=== PATIENT | male | born 1970 | race Caucasian/White ===

== ENCOUNTER 2020-12-18 14:22 | Inpatient (IN) | payer MEDICAID, SELFPAY ==
[2020-12-18] VITALS (21 sets, daily range): BP systolic 112–144; BP diastolic 57–81; PULSE 81–105; RESP 4–34; TEMP 36.2–36.7; O2SAT 81–99
--- NOTE | 2020-12-18 15:15 | DI.CT_ITS ---
Exam(s) CT CHEST PE CTA EXAM: CT CHEST PE CTA CLINICAL HISTORY: sob,tachy. TECHNIQUE: Imaging Protocol: CT angiography of the chest was performed using pulmonary embolus farooq col. Multi planar reconstructions were performed. CONTRAST MATERIAL: Intravenous: Omnipaque 350 Contrast volume: 100 cc COMPARISON: No exams were available for comparison FINDINGS: CHEST: PULMONARY ARTERIES: There are no obvious intraluminal filling defects to suggest acute pulmonary embo li. LUNGS: There are extensive bilateral patchy ground-glass infiltrates, not associated with pleural eff usions. Suspicious for Covid-19 infiltrates. No focal findings in the trachea and mainstem bronchi MEDIASTINUM: Slightly enlarged hilar lymph nodes bilaterally. Visualized thyroid unremarkable. CARDIAC: Heart size is upper normal. There is no pericardial effusion.Caliber of the thoracic aorta is within normal limits. There is no significant shift of the interventricular septum. PARTIALLY VISUALIZED UPPERMOST ABDOMEN: Severe hepatic steatosis. Mild splenomegaly. However, pleas e note that the spleen and liver only partially included in the field of view of this chest study. N o obvious adrenal masses although the entirety renal glands are not included in the field of view. OSSEOUS: No significant osseous lesions.. IMPRESSION: 1. No evidence of acute pulmonary emboli. No evidence of pulmonary infarction.No pleural effusions. 2. Main finding here are extensive bilateral ground-glass infiltrates highly suspicious for Covid-19 pneumonia. 3. Other findings as above. RADIATION DOSE DELIVERED: 775.62mGy.cm Total DLP DATA REPOSITORY: All CT scans at this facility are submitted to the National Radiology Data Registry (NRDR) Dose Index Registry (DIR) with the [employer] ([employer]). RADIATION OPTIMIZATION: All CT scans at this facility use at least one of these dose optimization te chniques: automated exposure control; mA and/or kV adjustment per patient size (includes targeted exa ms where dose is matched to clinical indication); or iterative reconstruction.
--- NOTE | 2020-12-18 15:15 | RT.EKG_ITS ---
APPROVED REPORT Exam: Resting ECG Reason for Exam: sob Patient Location: E HR:85 bpm ECG Measurements Heart Rate 85 AXIS NE 144 P 40 QRSd 97 QRS -32 QT 353 T 35 QTc 422 Conclusion Sinus rhythm...normal P axis, V-rate 60- 99 Left axis deviation...QRS axis (-30,-90). Sinus. No STEMI. I have reviewed and interpreted ECG and agree with software generated interpretation.
[2020-12-18] MEDS: Albuterol/Ipratropium 3 ML UPD VIAL (15:30)
[2020-12-18] MEDS: Albuterol 2.5 MG/3 ML INH SOLN VIAL (15:56)
[2020-12-18 16:06] LABS: Abs Immature Grans 0.07 10^3/uL (0.0-0.06); Absolute Basophil Count 0.01 10^3/uL (0.0-0.2); Absolute Lymphocyte Count 0.85 10^3/uL (1.2-3.4); Absolute Monocyte Count 0.27 10^3/uL (0.1-0.8); Absolute Neutrophil Count 2.93 10^3/uL (1.2-6.7); Basophils % 0.2; HCT 42.2 % (40.0-50.0); HGB 13.7 g/dL (13.5-17.5); Immature Grans % 1.7; Lymphocytes % 20.6; MCH 26.7 pg (27.0-33.0); MCHC 32.5 % (32.0-36.0); MCV 82.3 fL (80-95); MPV 10.7 fL (8.0-11.0); Monocytes % 6.5; Nucleated RBC 0 %; Platelet Count 172 10^3/uL (130-400); RBC 5.13 10^6/uL (4.36-5.78); RDW 14.2 % (11.8-14.1); RDW-SD 42.2 fL; WBC 4.13 10^3/uL (4.4-10.8)
[2020-12-18 16:08] LABS: Lactate 1.7 mmol/L (0.6-1.4)
[2020-12-18] MEDS: methylPREDNISolone SUCC 125 MG VIAL IVP (16:08)
[2020-12-18] MEDS: Normal Saline 1,000 ML 1000 ML IV (16:09)
--- NOTE | 2020-12-18 16:20 | W.ED.GENAD ---
Discharge Plan Disposition Patient Disposition: STILL A PATIENT Condition: Critical Discharge Details Clinical Impression: COVID-19, Respiratory failure Admit Date/Time: 12/18/20 18:21 Admit Provider: Usman Major Attending Provider: Usman Major Primary Care Provider: Kay Lemos ED Provider: Maile Myers Discharge Data Discharge Date/Time-TO BE ENTERED AT DEPARTURE: 12/18/20 19:52 Medical Decision Making <WILLIAM Bravo - Last Filed: 12/19/20 07:59> 50-year-old gentleman, on the vaccinated for Covid, former smoker, past medical history of asthma, with recent Covid exposure, presenting to the ER with 7-day history of upper respiratory-like symptoms. He presents tachypneic, O2 sat 81% on room air. He was immediately placed on 2 supplemental oxygen, O2 sats now in the low 90s on 3 L nasal cannula although he still appears somewhat tachypneic. Respiratory therapy was contacted. Given his asthma, wheezing, will give a single DuoNeb and then 2 albuterol nebs [id number]. We will also give 125 IV Solu-Medrol will initiate a septic work-up as well as a one-view portable chest x-ray and a CTA for further evaluation of his hypoxemia potential PE. Patient refuses to prone given his body habitus but will lie on his left and right side. Subsequently the patient was lying on his right side at 6 L nasal cannula O2 sat 94%. It was brought to my attention from respiratory that we only have 1 CPAP available and we have no high flow options currently. Patient did begin to move slightly more air after the neb treatments. He is slightly less tachypneic. Clinically he does not require emergent CPAP at this time White blood cell count of 4.13 hemoglobin 13.7 had a crit 42.2 platelet count 172. D-dimer 1004, lactate 1.7 electrolytes unremarkable creatinine 1.1 with a GFR greater than 60. Ferritin 454 AST 144 ALT 93 alk phosphatase 123. Initial troponin less than 0.05. Covid positive Lab Data Lab results reviewed: Yes I reviewed the patient's lab results. Labs: 12/18/20 16:00 Blood Blood Culture - Pending 12/18/20 16:30 Blood Blood Culture - Pending 12/18/20 15:45 Nasopharynx Influenza Types A,B Antigen - Final Laboratory Tests Range/Units 12/18/20 12/18/20 12/18/20 15:10 15:10 15:45 WBC Cancelled RBC Cancelled Hgb Cancelled Hct Cancelled MCV Cancelled MCH Cancelled MCHC Cancelled RDW Cancelled Plt Count Cancelled MPV Cancelled Immature Gran % Cancelled Neutrophils % Cancelled Band Neutrophils % Cancelled Lymphocytes % Cancelled Atypical Lymphs % Cancelled Monocytes % Cancelled Eosinophils % Cancelled Basophils % Cancelled Metamyelocytes % Cancelled Myelocytes % Cancelled Promyelocytes % Cancelled Other Cells % Cancelled Nucleated RBC % Cancelled Absolute Neutrophils Cancelled Absolute Lymphocytes Cancelled Absolute Monocytes Cancelled Absolute Eosinophils Cancelled Absolute Basophils Cancelled RBC Morphology Cancelled Polychromasia Cancelled Hypochromasia Cancelled Poikilocytosis Cancelled Basophilic Stippling Cancelled Anisocytosis Cancelled Microcytosis Cancelled Macrocytosis Cancelled Spherocytes Cancelled Tear Drop Cells Cancelled Ovalocytes Cancelled Stomatocytes Cancelled [place] Bodies Cancelled [place] Cells/Echinocytes Cancelled Acanthocytes (Spur) Cancelled Schistocytes Cancelled D-Dimer (<500) ng/mlFEU VBG Lactate (0.6-1.4) mmol/L Sodium Cancelled Potassium Cancelled Chloride Cancelled Carbon Dioxide Cancelled Anion Gap Cancelled BUN Cancelled Creatinine Cancelled Estimated GFR/1.73 m2 Cancelled Glucose Cancelled Calcium Cancelled Magnesium Cancelled Ferritin (26-388) ng/mL Total Bilirubin Cancelled AST Cancelled ALT Cancelled Alkaline Phosphatase Cancelled Troponin I Cancelled Total Protein Cancelled Albumin Cancelled Procalcitonin ng/mL COVID-19 Source NASOPHARYX SARS-CoV-2 (PCR) (Negative) POSITIVE A* Range/Units 12/18/20 12/18/20 12/18/20 15:50 15:50 15:50 WBC 4.13 L RBC 5.13 Hgb 13.7 Hct 42.2 MCV 82.3 MCH 26.7 L MCHC 32.5 RDW 14.2 H Plt Count 172 MPV 10.7 Immature Gran % 1.7 Neutrophils % 71.0 Band Neutrophils % Lymphocytes % 20.6 Atypical Lymphs % Monocytes % 6.5 Eosinophils % 0.0 Basophils % 0.2 Metamyelocytes % Myelocytes % Promyelocytes % Other Cells % Nucleated RBC % 0 Absolute Neutrophils 2.93 Absolute Lymphocytes 0.85 L Absolute Monocytes 0.27 Absolute Eosinophils 0.00 Absolute Basophils 0.01 RBC Morphology Polychromasia Hypochromasia Poikilocytosis Basophilic Stippling Anisocytosis Microcytosis Macrocytosis Spherocytes Tear Drop Cells Ovalocytes Stomatocytes [place] Bodies [place] Cells/Echinocytes Acanthocytes (Spur) Schistocytes D-Dimer (<500) ng/mlFEU VBG Lactate (0.6-1.4) mmol/L 1.7 H Sodium 137 Potassium 4.1 Chloride 99 Carbon Dioxide 30.5 Anion Gap 7.5 BUN 12 Creatinine 1.1 Estimated GFR/1.73 m2 >= 60.00 Glucose 96 Calcium 8.5 Magnesium Ferritin (26-388) ng/mL 454 H Total Bilirubin 0.7 AST 144 H ALT 93 H Alkaline Phosphatase 123 H Troponin I < 0.05 Total Protein 7.6 Albumin 3.0 L Procalcitonin ng/mL 0.2 COVID-19 Source SARS-CoV-2 (PCR) (Negative) Range/Units 12/18/20 15:50 WBC RBC Hgb Hct MCV MCH MCHC RDW Plt Count MPV Immature Gran % Neutrophils % Band Neutrophils % Lymphocytes % Atypical Lymphs % Monocytes % Eosinophils % Basophils % Metamyelocytes % Myelocytes % Promyelocytes % Other Cells % Nucleated RBC % Absolute Neutrophils Absolute Lymphocytes Absolute Monocytes Absolute Eosinophils Absolute Basophils RBC Morphology Polychromasia Hypochromasia Poikilocytosis Basophilic Stippling Anisocytosis Microcytosis Macrocytosis Spherocytes Tear Drop Cells Ovalocytes Stomatocytes [place] Bodies [place] Cells/Echinocytes Acanthocytes (Spur) Schistocytes D-Dimer (<500) ng/mlFEU 1004 H VBG Lactate (0.6-1.4) mmol/L Sodium Potassium Chloride Carbon Dioxide Anion Gap BUN Creatinine Estimated GFR/1.73 m2 Glucose Calcium Magnesium Ferritin (26-388) ng/mL Total Bilirubin AST ALT Alkaline Phosphatase Troponin I Total Protein Albumin Procalcitonin ng/mL COVID-19 Source SARS-CoV-2 (PCR) (Negative) ECG Data Attestation: I personally reviewed and interpreted this ECG (s) as follows: Interpretation: Please see official report by Dr. Casarez. Sinus rhythm, ventricular rate of 85. No Stemi <WILLIAM Elam - Last Filed: 12/18/20 22:06> Patient was trending down on his oxygen, 89 to 90% despite proning and 6 L of oxygen, and BiPAP was initiated, patient will be admitted to the ICU Agreeable to admission at this time Remains alert, oriented, of decisional capacity, full CODE STATUS CTA does not show evidence of pulmonary embolism, bibasilar infiltrates likely consistent with COVID-19 HPI <WILLIAM Bravo - Last Filed: 12/19/20 07:59> General Mode of arrival: ambulatory. Date/Time Provider Initiated Documentation: 12/18/20 14:40. Limitations to Documentation: no limitations. Information obtained by: patient. HPI Narrative: This is a 50-year-old male, former smoker, a past history of asthma, not vaccinated for Covid with a known exposure in the last 1-2-week presenting to the ER for what he described as 7-8 days of body aches, cough, shortness of breath, dull headache, worsening in that timeframe. Patient reports decreased p.o. intake, concern for dehydration, chest pain with coughing. He denies any back pain, pain rating down his arm or into his neck. Patient does report generalized weakness. He has not taken any medications [id number] for his symptoms. Patient reports that his cough is primarily dry but is occasionally productive with a clear sputum. Patient denies any past history of cardiac disease. He does use Symbicort daily for his asthma and uses his rescue inhaler as needed, has used it regularly over the past few days. Related Data Allergies Allergy/AdvReac Type Severity Reaction Status Date / Time No Known Allergies Allergy Unverified 12/18/20 14:37 General Stated Complaint: SOB IVANA: 2 Review of Systems <WILLIAM Bravo - Last Filed: 12/19/20 07:59> Constitutional Constitutional: Reports fatigue, Reports fever(s) (Subjective) and Reports headache(s) ENT Ears, Nose, Mouth, and Throat: Reports headache(s) and Denies neck pain Cardiovascular Cardiovascular: Reports chest pain (With coughing) and Reports dyspnea Respiratory Respiratory: Reports cough, Reports dyspnea and Reports wheezing Gastrointestinal Gastrointestinal: Denies abdominal pain, Denies constipation, Reports diarrhea, Reports nausea and Denies vomiting Genitourinary Genitourinary: Denies dysuria Musculoskeletal Musculoskeletal: Denies back pain and Denies neck pain Integumentary/Breasts Skin/Breast: Denies rash Neurologic Neurologic: Reports headache(s) and Reports weakness (Generalized) Endocrine Endocrine: Reports fatigue Allergic/Immunologic Allergic/Immunologic: Reports wheezing PFSH <WILLIAM Bravo - Last Filed: 12/19/20 07:59> Social History Smoking/Tobacco Use Status: Never Smoking risk assessment performed?: Yes Alcohol Intake: never Substance use type: does not use Do you feel safe at home: Yes Do you feel safe in your relationship?: Yes Exam <WILLIAM Bravo Last Filed: 12/19/20 07:59> Const General: cooperative and in distress mild and respiratory Orientation: alert, awake and oriented x3 HENMT Head: normal to inspection, normocephalic and atraumatic Face and sinus: normal facial exam Mouth: moist mucous membranes abnormal (Dry) Throat: posterior oropharynx normal Eyes General: appearance normal, both eyes and all related structures Conjunctivae: conjunctivae normal Neck Neck: normal visual inspection, full ROM, no lymphadenopathy, no meningeal signs, trachea midline, supple and nontender Chest Chest: normal inspection of the chest and normal palpation of entire chest wall Resp Effort & Inspection: able to speak in complete sentences, cough Quality of cough: dry and tachypneic Auscultation: diminished lung sounds bilaterally throughout and wheezes (Throughout, expiratory) Cardio Rate: regular rate Rhythm: regular rhythm GI Inspection: obesity and scar Palpation: soft, not firm, no guarding, no pulsatile masses and nontender Back/Spine/Pelvis Back: no CVA tenderness and No back tenderness Skin General skin exam: no rashes or lesions noted Neuro General: patient alert, patient awake, moves all extremities and no focal motor deficits Cognition: normal cognition Speech: speech normal Gait: normal gait Sensory Exam: no sensory deficits noted Extrem General: normal to inspection, full ROM, capillary refill normal, no pedal edema and no calf tenderness Psych Appearance: grossly normal Mental Status: mental status grossly normal Course <WILLIAM Bravo - Last Filed: 12/19/20 07:59> Vital Signs Vital signs: Vital Signs Temperature 36.7 C 12/18/20 14:32 Pulse 90 12/18/20 14:32 Respiratory Rate 16 12/18/20 14:32 Blood Pressure 144/81 H 12/18/20 14:32 Pulse Oximetry 81 L 12/18/20 14:32 Temperature 36.7 C 12/18/20 14:32 Temperature Source Tympanic 12/18/20 14:32 Pulse 92 H 12/18/20 15:30 Pulse 95 H 12/18/20 16:10 Respiratory Rate 24 12/18/20 16:10 Respiratory Effort Labored 12/18/20 15:54 Respiratory Depth Normal 12/18/20 15:54 Respiratory Pattern Normal 12/18/20 15:54 Blood Pressure 144/81 H 12/18/20 14:32 Blood Pressure Position Supine 12/18/20 14:32 Pulse Oximetry 91 L 12/18/20 16:10 Oxygen Delivery Method Nasal Cannula 12/18/20 15:30 Oxygen Flow Rate 3 12/18/20 15:30 Pain Level 8 12/18/20 14:32 Lab/Test Results Lab/Test Results: 12/18/20 15:45 Nasopharynx Influenza Types A,B Antigen - Pending 12/18/20 15:28 Blood Blood Culture - Pending 12/18/20 15:28 Blood Blood Culture - Pending Laboratory Tests Range/Units 12/18/20 12/18/20 12/18/20 15:10 15:10 15:45 WBC Cancelled RBC Cancelled Hgb Cancelled Hct Cancelled MCV Cancelled MCH Cancelled MCHC Cancelled RDW Cancelled Plt Count Cancelled MPV Cancelled Immature Gran % Cancelled Neutrophils % Cancelled Band Neutrophils % Cancelled Lymphocytes % Cancelled Atypical Lymphs % Cancelled Monocytes % Cancelled Eosinophils % Cancelled Basophils % Cancelled Metamyelocytes % Cancelled Myelocytes % Cancelled Promyelocytes % Cancelled Other Cells % Cancelled Nucleated RBC % Cancelled Absolute Neutrophils Cancelled Absolute Lymphocytes Cancelled Absolute Monocytes Cancelled Absolute Eosinophils Cancelled Absolute Basophils Cancelled RBC Morphology Cancelled Polychromasia Cancelled Hypochromasia Cancelled Poikilocytosis Cancelled Basophilic Stippling Cancelled Anisocytosis Cancelled Microcytosis Cancelled Macrocytosis Cancelled Spherocytes Cancelled Tear Drop Cells Cancelled Ovalocytes Cancelled Stomatocytes Cancelled [place] Bodies Cancelled [place] Cells/Echinocytes Cancelled Acanthocytes (Spur) Cancelled Schistocytes Cancelled VBG Lactate (0.6-1.4) mmol/L Sodium Cancelled Potassium Cancelled Chloride Cancelled Carbon Dioxide Cancelled Anion Gap Cancelled BUN Cancelled Creatinine Cancelled Estimated GFR/1.73 m2 Cancelled Glucose Cancelled Calcium Cancelled Magnesium Cancelled Total Bilirubin Cancelled AST Cancelled ALT Cancelled Alkaline Phosphatase Cancelled Troponin I Cancelled Total Protein Cancelled Albumin Cancelled COVID-19 Source NASOPHARYX Range/Units 12/18/20 12/18/20 15:50 15:50 WBC 4.13 L RBC 5.13 Hgb 13.7 Hct 42.2 MCV 82.3 MCH 26.7 L MCHC 32.5 RDW 14.2 H Plt Count 172 MPV 10.7 Immature Gran % 1.7 Neutrophils % 71.0 Band Neutrophils % Lymphocytes % 20.6 Atypical Lymphs % Monocytes % 6.5 Eosinophils % 0.0 Basophils % 0.2 Metamyelocytes % Myelocytes % Promyelocytes % Other Cells % Nucleated RBC % 0 Absolute Neutrophils 2.93 Absolute Lymphocytes 0.85 L Absolute Monocytes 0.27 Absolute Eosinophils 0.00 Absolute Basophils 0.01 RBC Morphology Polychromasia Hypochromasia Poikilocytosis Basophilic Stippling Anisocytosis Microcytosis Macrocytosis Spherocytes Tear Drop Cells Ovalocytes Stomatocytes [place] Bodies [place] Cells/Echinocytes Acanthocytes (Spur) Schistocytes VBG Lactate (0.6-1.4) mmol/L 1.7 H Sodium Potassium Chloride Carbon Dioxide Anion Gap BUN Creatinine Estimated GFR/1.73 m2 Glucose Calcium Magnesium Total Bilirubin AST ALT Alkaline Phosphatase Troponin I Total Protein Albumin COVID-19 Source Critical Care Time <WILLIAM Bravo - Last Filed: 12/19/20 07:59> Critical Care Time Critical Care Time: Yes Total Critical Care Time: 35 Attestation: Upon my evaluation, this patient had a high probability of clinically significant, life-threatening deterioration due to their current medical conditions, which required my direct attention, intervention, and personal management. I have personally provided greater than 30 minutes of critical care time exclusive of the time spend on separately billable procedures. Time includes obtaining a history, examining the patient, pulse oximetry, review of laboratory data, radiology results, discussion with consultants, arranging urgent treatment with development of a management plan, evaluation of patient's response to treatment, and monitoring for potential decompensation. Interventions were performed as documented above. Sign Out <WILLIAM Bravo - Last Filed: 12/19/20 07:59> Sign Out Data: Sign Out Comment: Covid positive. Currently on 6 L nasal cannula satting in the mid 90s. Lactate 1.7. Awaiting CTA of the chest. Patient will require admission. Last updated by Boris Reyes PA at 12/18/20 17:09
[2020-12-18 16:37] LABS: D-Dimer 1004 ng/mlFEU (<500)
[2020-12-18 16:42] LABS: Procalcitonin 0.2 ng/mL
[2020-12-18 16:56] LABS: ALT 93 U/L (16-63); AST 144 U/L (15-37); Alkaline Phosphatase 123 U/L (46-116); Anion Gap 7.5 mmol/L (3-11); BUN 12 mg/dL (7-18); Bilirubin, Total 0.7 mg/dL (0.2-1.0); CO2 30.5 mmol/L (21.0-32.0); CREATININE 1.1 mg/dL (0.70-1.30); Calcium 8.5 mg/dL (8.5-10.1); Chloride 99 mmol/L (98-107); Ferritin 454 ng/mL (26-388); Glucose 96 mg/dL (74-106); Potassium 4.1 mmol/L (3.5-5.1); Sodium 137 mmol/L (136-145); Total Protein 7.6 g/dL (6.4-8.2)
[2020-12-18 17:00] LABS: COVID-19 PCR POSITIVE (Negative)
[2020-12-18 17:02] LABS: Troponin I < 0.05 ng/mL (<0.06)
[2020-12-18 17:05] LABS: NT-proBNP 20 pg/mL (<300)
[2020-12-18 17:12] LABS: C-Reactive Protein 12.13 mg/dL (0.0-0.3); LDH 759 U/L (85-227)
[2020-12-18] MEDS: Normal Saline - Diluent 50 ML VIAL IV (17:23)
[2020-12-18] MEDS: Normal Saline Flush 10 ML SYR IVP (17:23)
[2020-12-18] MEDS: Omnipaque 350 MG/ML 100 ML BTL IJ (17:24)
--- NOTE | 2020-12-18 18:04 | DI.VRAD_ITS ---
PROCEDURE INFORMATION: Exam: CTA Chest With Contrast Exam date and time: 12/18/2020 15:31 Age: 50 years old Clinical indication: Other: SOB, tachy, PT is covid positive TECHNIQUE: Imaging protocol: Computed tomographic angiography of the chest with contrast. 3D rendering (Not supervised by radiologist): MIP and/or 3D reconstructed images were created by the technologist. Radiation optimization: All CT scans at this facility use at least one of these dose optimization techniques: automated exposure control; mA and/or kV adjustment per patient size (includes targeted exams where dose is matched to clinical indication); or iterative reconstruction. Contrast material: OMNIPAQUE 350; Contrast volume: 100 ml; Contrast route: INTRAVENOUS (IV); COMPARISON: No relevant prior studies available. FINDINGS: Pulmonary arteries: No pulmonary emboli. Aorta: No aortic aneurysm. No aortic dissection. Thyroid: Slightly heterogeneous thyroid containing statistically benign small nodules. Lungs: Moderate in severity multilobar pulmonary opacities predominantly ground-glass in configuration. Pleural spaces: No pneumothorax. No pleural effusion. Heart: Trace pericardial fluid appears likely physiologic. No significant cardiomegaly. Lymph nodes: Mild mediastinal adenopathy appears likely commensurate to the degree of pulmonary disease. Liver: The visualized liver is heterogeneous and fatty. Bones/joints: No acute fracture. Soft tissues: Trace bilateral gynecomastia. IMPRESSION: 1. No pulmonary emboli are seen. 2. Findings compatible with stated history of COVID-19 pneumonia, moderate burden of disease. 3. Incidental findings as described. Dictated and Authenticated by: Jina Marie MD. Ordering:PAU Escalante MD
--- NOTE | 2020-12-18 21:10 | W.PM.HP.N ---
Date of service: 12/18/20 Time of Service: 20:36 Assessment and Plan Assessment and plan (1) COVID-19: Status: Acute Assessment and plan: Covid-19 PNA Unvaccinated. CPAP, prone / side positioning if unable to prone. Breaks on High flow [place] Pulmonary consulted. Dexamethasone 6mg IV daily. Remdesivir 200mg IV administered initially, then 100mg IV QHS Baricitinib 4 mg po daily Trend inflammatory markers. (2) Respiratory failure: Status: Acute Assessment and plan: Supplemental O2 as above (3) Asthma: Status: Chronic Assessment and plan: Pt endorsed using Symbicort daily with albuterol rescue use prn. Continue. (4) Morbid obesity: Status: Acute Assessment and plan: Risk factor that prognosticates a poor outcome. (5) Sleep apnea: Status: Acute Assessment and plan: Uses CPAP at home; continuing here as part of COVID-19 treatment. 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 He endorsed CP with coughing. No noted fever. Patient reports that his cough is primarily dry but is occasionally productive with a clear sputum. He does use Symbicort daily for his asthma and uses his rescue inhaler as needed, and he reported using it regularly over the past few days. His brother also presented to the ED and tested positive for COVID-19. Review of Systems All systems reviewed & are unremarkable except as noted in HPI and below PFSH Social History Smoking/Tobacco Use Status: Never Smoking risk assessment performed?: Yes Alcohol Intake: never Substance use type: does not use Do you feel safe at home: Yes Do you feel safe in your relationship?: Yes Meds Allergies and Home Medications Allergies Allergy/AdvReac Type Severity Reaction Status Date / Time No Known Allergies Allergy Unverified 12/18/20 14:37 Exam Narrative Exam Narrative: Obese male lying on left side. CPAP in place. Const General: cooperative and no acute distress Nutritional Appearance: obese Orientation: alert and oriented x3 HENMT Head: atraumatic Ears: hearing grossly normal bilaterally Eyes General: appearance normal, both eyes and all related structures Sclera: sclerae normal Chest Chest: abnormal inspection of the chest and no tenderness Resp Effort & Inspection: normal respiratory effort Auscultation: diminished lung sounds Cardio Rate: regular rate Rhythm: regular rhythm Heart Sounds: S1 normal and S2 normal GI Inspection: obesity Palpation: soft and nontender Neuro General: moves all extremities Cognition: normal cognition Speech: speech normal Extrem General: no pedal edema and no calf tenderness Results Labs Result diagrams: 12/18/20 15:50 12/18/20 15:50 Labs: Laboratory Results - last 24 hr 12/18/20 12/18/20 12/18/20 15:10 15:10 15:45 WBC Cancelled RBC Cancelled Hgb Cancelled Hct Cancelled MCV Cancelled MCH Cancelled MCHC Cancelled RDW Cancelled Plt Count Cancelled MPV Cancelled Immature Gran % Cancelled Neutrophils % Cancelled Band Neutrophils % Cancelled Lymphocytes % Cancelled Atypical Lymphs % Cancelled Monocytes % Cancelled Eosinophils % Cancelled Basophils % Cancelled Metamyelocytes % Cancelled Myelocytes % Cancelled Promyelocytes % Cancelled Other Cells % Cancelled Nucleated RBC % Cancelled Absolute Neutrophils Cancelled Absolute Lymphocytes Cancelled Absolute Monocytes Cancelled Absolute Eosinophils Cancelled Absolute Basophils Cancelled RBC Morphology Cancelled Polychromasia Cancelled Hypochromasia Cancelled Poikilocytosis Cancelled Basophilic Stippling Cancelled Anisocytosis Cancelled Microcytosis Cancelled Macrocytosis Cancelled Spherocytes Cancelled Tear Drop Cells Cancelled Ovalocytes Cancelled Stomatocytes Cancelled [place] Bodies Cancelled [place] Cells/Echinocytes Cancelled Acanthocytes (Spur) Cancelled Schistocytes Cancelled D-Dimer VBG Lactate Sodium Cancelled Potassium Cancelled Chloride Cancelled Carbon Dioxide Cancelled Anion Gap Cancelled BUN Cancelled Creatinine Cancelled Estimated GFR/1.73 m2 Cancelled Glucose Cancelled Calcium Cancelled Magnesium Cancelled Ferritin Total Bilirubin Cancelled AST Cancelled ALT Cancelled Alkaline Phosphatase Cancelled Lactate Dehydrogenase Troponin I Cancelled C-Reactive Protein NT-Pro-B Natriuret Pep Total Protein Cancelled Albumin Cancelled Procalcitonin COVID-19 Source NASOPHARYX SARS-CoV-2 (PCR) POSITIVE A* 12/18/20 12/18/20 12/18/20 15:50 15:50 15:50 WBC 4.13 L RBC 5.13 Hgb 13.7 Hct 42.2 MCV 82.3 MCH 26.7 L MCHC 32.5 RDW 14.2 H Plt Count 172 MPV 10.7 Immature Gran % 1.7 Neutrophils % 71.0 Band Neutrophils % Lymphocytes % 20.6 Atypical Lymphs % Monocytes % 6.5 Eosinophils % 0.0 Basophils % 0.2 Metamyelocytes % Myelocytes % Promyelocytes % Other Cells % Nucleated RBC % 0 Absolute Neutrophils 2.93 Absolute Lymphocytes 0.85 L Absolute Monocytes 0.27 Absolute Eosinophils 0.00 Absolute Basophils 0.01 RBC Morphology Polychromasia Hypochromasia Poikilocytosis Basophilic Stippling Anisocytosis Microcytosis Macrocytosis Spherocytes Tear Drop Cells Ovalocytes Stomatocytes [place] Bodies Paul Cells/Echinocytes Acanthocytes (Spur) Schistocytes D-Dimer VBG Lactate 1.7 H Sodium 137 Potassium 4.1 Chloride 99 Carbon Dioxide 30.5 Anion Gap 7.5 BUN 12 Creatinine 1.1 Estimated GFR/1.73 m2 >= 60.00 Glucose 96 Calcium 8.5 Magnesium Ferritin 454 H Total Bilirubin 0.7 AST 144 H ALT 93 H Alkaline Phosphatase 123 H Lactate Dehydrogenase 759 H Troponin I < 0.05 C-Reactive Protein 12.13 H NT-Pro-B Natriuret Pep Total Protein 7.6 Albumin 3.0 L Procalcitonin 0.2 COVID-19 Source SARS-CoV-2 (PCR) 12/18/20 12/18/20 12/18/20 15:50 16:30 18:28 WBC RBC Hgb Hct MCV MCH MCHC RDW Plt Count MPV Immature Gran % Neutrophils % Band Neutrophils % Lymphocytes % Atypical Lymphs % Monocytes % Eosinophils % Basophils % Metamyelocytes % Myelocytes % Promyelocytes % Other Cells % Nucleated RBC % Absolute Neutrophils Absolute Lymphocytes Absolute Monocytes Absolute Eosinophils Absolute Basophils RBC Morphology Polychromasia Hypochromasia Poikilocytosis Basophilic Stippling Anisocytosis Microcytosis Macrocytosis Spherocytes Tear Drop Cells Ovalocytes Stomatocytes [place] Bodies [place] Cells/Echinocytes Acanthocytes (Spur) Schistocytes D-Dimer 1004 H VBG Lactate Sodium Potassium Chloride Carbon Dioxide Anion Gap BUN Creatinine Estimated GFR/1.73 m2 Glucose Calcium Magnesium Ferritin Total Bilirubin AST ALT Alkaline Phosphatase Lactate Dehydrogenase Troponin I Cancelled C-Reactive Protein NT-Pro-B Natriuret Pep 20 Total Protein Albumin Procalcitonin COVID-19 Source SARS-CoV-2 (PCR) Last Vital Signs Temp 36.2 C L 12/18/20 20:35 Pulse 82 12/18/20 20:35 Resp 28 H 12/18/20 20:26 BP 112/57 L 12/18/20 20:26 Pulse Ox 93 12/18/20 20:26
[2020-12-18] MEDS: Water,Injection,Sterile 10 ML VIAL (21:49)
[2020-12-18] MEDS: REMDESIVIR 200 MG in Normal Saline 250 ML 250 MG IVPB (21:49)
[2020-12-18] MEDS: Ascorbic Acid 500 MG TAB 1000 MG PO (21:49)
[2020-12-19] VITALS (35 sets, daily range): BP systolic 100–149; BP diastolic 64–99; PULSE 59–103; RESP 15–35; TEMP 35.9–37.2; O2SAT 82–95
[2020-12-19 07:54] LABS: Abs Immature Grans 0.06 10^3/uL (0.0-0.06); Absolute Lymphocyte Count 0.33 10^3/uL (1.2-3.4); Absolute Monocyte Count 0.19 10^3/uL (0.1-0.8); HCT 41.3 % (40.0-50.0); HGB 13.1 g/dL (13.5-17.5); Immature Grans % 2.4; Lymphocytes % 13.3; MCH 26.4 pg (27.0-33.0); MCHC 31.7 % (32.0-36.0); MCV 83.1 fL (80-95); MPV 10.8 fL (8.0-11.0); Monocytes % 7.7; Neutrophils % 76.6; Nucleated RBC 0 %; Platelet Count 191 10^3/uL (130-400); RBC 4.97 10^6/uL (4.36-5.78); RDW 14.3 % (11.8-14.1); RDW-SD 43.6 fL; WBC 2.48 10^3/uL (4.4-10.8)
[2020-12-19 08:11] LABS: ALT 77 U/L (16-63); AST 97 U/L (15-37); Albumin 2.6 g/dL (3.4-5.0); Alkaline Phosphatase 112 U/L (46-116); Anion Gap 7.3 mmol/L (3-11); BUN 12 mg/dL (7-18); Bilirubin, Total 0.6 mg/dL (0.2-1.0); C-Reactive Protein 12.96 mg/dL (0.0-0.3); CO2 29.7 mmol/L (21.0-32.0); CREATININE 0.8 mg/dL (0.70-1.30); Calcium 8.4 mg/dL (8.5-10.1); Chloride 103 mmol/L (98-107); Glucose 144 mg/dL (74-106); Potassium 4.4 mmol/L (3.5-5.1); Sodium 140 mmol/L (136-145); Total Protein 7.2 g/dL (6.4-8.2)
[2020-12-19 08:23] LABS: Diff Comment Agrees w/ Instrument; RBC Morphology Normal
[2020-12-19 08:25] LABS: D-Dimer 1046 ng/mlFEU (<500)
[2020-12-19] MEDS: Enoxaparin 40 MG/0.4 ML SYR SC ×2 (08:58→22:28)
[2020-12-19] MEDS: Zinc Sulfate 220 MG TAB PO (08:58)
[2020-12-19] MEDS: Polyethylene Glycol 3350 17 GM PACKET PO (08:58)
[2020-12-19] MEDS: Ascorbic Acid 500 MG TAB 1000 MG PO ×2 (08:59→22:27)
[2020-12-19] MEDS: cefTRIAXone 1 GM/50 ML BAG IVPB (08:59)
[2020-12-19] MEDS: Dexamethasone 10 MG/ML VIAL 6 MG IVP (08:59)
[2020-12-19] MEDS: Cholecalciferol (Vitamin D3) 1,000 UNIT TAB 2000 UNITS PO (08:59)
[2020-12-19] MEDS: Famotidine 20 MG TAB PO ×2 (09:00→22:28)
[2020-12-19] MEDS: Doxycycline Hyclate 100 MG CAP PO ×2 (09:00→22:27)
[2020-12-19] MEDS: Furosemide 20 MG TAB PO (09:00)
[2020-12-19] MEDS: Potassium Chloride 20 MEQ TABCR PO (09:00)
--- NOTE | 2020-12-19 09:10 | NUR.NOTE ---
Respiratory called and helped this chief writer get PT on oxygen and off of cpap to eat breakfast. RT in room along with RNNursing Note:
[2020-12-19] MEDS: Budesonide/Formoterol 160/4.5 6 GM 60 PUFF INH IH ×2 (09:43→22:29)
--- NOTE | 2020-12-19 11:46 | PHACLINREV_ITS ---
Pharmacy Admission Review - Admission Clinical Review (Last Reviewed 12/19/20 @ 05:41 by Usman Major MD) Sleep apnea (Acute) Morbid obesity (Acute) COVID-19 (Acute) Respiratory failure (Acute) No Known Allergies Allergy (Unverified 12/18/20 14:37) Resuscitation Status Full Code Height 6 ft 4 in Weight 155 kg - Renal Dosing Renal Dosing: BUN 12 mg/dL (7-18) 12/19/20 07:12 Creatinine 0.8 mg/dL (0.70-1.30) 12/19/20 07:12 Medications needing adjustments: Reviewed - Anticoagulation Anticoagulation: Hgb 13.1 g/dL (13.5-17.5) L 12/19/20 07:12 Hct 41.3 % (40.0-50.0) 12/19/20 07:12 Plt Count 191 10^3/uL (130-400) 12/19/20 07:12 Creatinine 0.8 mg/dL (0.70-1.30) 12/19/20 07:12 DVT Prophylaxis: Reviewed Medications: Enoxaparin (frequency increased to q12h (low intensity) since d- dimer went up slightly) - Opiate Usage Evaluate Pain Scale/Pains Meds: N/A - Relevant Labs Sodium 140 mmol/L (136-145) 12/19/20 07:12 Potassium 4.4 mmol/L (3.5-5.1) 12/19/20 07:12 Chloride 103 mmol/L (98-107) 12/19/20 07:12 Magnesium Cancelled 12/18/20 15:10 C-Reactive Protein 12.96 mg/dL (0.0-0.3) H 12/19/20 07:12 Electrolytes, C-Reactive P, ESR: Reviewed (I added daily PT as patient was initiated on remdesivir) - DM Control DM Control: Glucose 144 mg/dL (74-106) H 12/19/20 07:12 Insulin Dosing: Reviewed - Heart Failure/IA Heart Failure/IA: Troponin I Cancelled 12/18/20 18:28 NT-Pro-B Natriuret Pep 20 pg/mL (<300) 12/18/20 16:30 EF%, JOSELITO's, B-Blockers, Diuretics: Reviewed - BP Control BP Control: Blood Pressure 100/71 Blood Pressure 124/65 Blood Pressure 146/78 If elevated: Reviewed - Qtc Review If Elevated: Reviewed - IV to PO Switch IV Medications: Reviewed - Home Meds Home Med List reviewed: Intervened Relevent Home Meds Not ordered & why?: updated list with meds most recently filled within past few months per external rx history - Current meds Current Medication Order Review: Reviewed
[2020-12-19] MEDS: Ipratropium/Albuterol 4 GM 120 PUFF INH IH ×3 (12:53→22:29)
[2020-12-19 15:28] LABS: Ferritin 439 ng/mL (26-388)
--- NOTE | 2020-12-19 16:12 | PGE_ITS ---
Date of Service Date of service: 12/19/20 Time of Service: 16:12 Assessment and Plan Assessment and plan (1) COVID-19: Status: Acute Assessment and plan: continue Baricitinib, decadron, and Remdesivir; patient is also on vitamin C, zinc and vitamin D. He is on prophylaxis level of enoxaparin but we will closely monitor his d-dimer and if it rises over 2500 then consider full anticoagulation. Low dose diuretic has been added and patient has been put on atorvastatin. Rocephin and doxycycline added pending serial negative procalcitonin levels. CC time 30 minutes (2) Asthma: Status: Chronic Assessment and plan: he is having some acute bronchospasm brought on by C OVID-19 pneumonia superimposed on his asthma. In addition to the decadron for the COVID pneumonia, he has been put on his Symbicort and I have added scheduled combivent MDI along w/ prn albuterol MDI. Qualifiers: Asthma severity: mild Asthma persistence: intermittent Asthma complication type: with acute exacerbation Qualified Code(s): J45.21 - Mild intermittent asthma with (acute) exacerbation (3) Sleep apnea: Status: Acute Assessment and plan: patient to wear CPAP as much as possible not only for his JARRETT but for his acute hypoxemic respiratory failure. Qualifiers: Sleep apnea type: obstructive Qualified Code(s): G47.33 - Obstructive sleep apnea (adult) (pediatric) (4) Respiratory failure: Status: Acute Assessment and plan: as above. patient is a full code and if he fails NIPPV then he would accept intubation if necessary. Qualifiers: Chronicity: acute Respiratory failure complication: hypoxia Qualified Code(s): J96.01 - Acute respiratory failure with hypoxia (5) DVT prophylaxis: Status: Acute Assessment and plan: lovenox 40 mg SC daily although due to his large body habitus he probably should be on higher dose such as 40 mg SC q12h Subjective Subjective Interval history since last seen: Patient admitted w/ hypoxemic respiratory failure d/t covid-19 pneumonia. He has had symptoms for past 8 days w/ worsening dyspnea over past couple days. He is unvaccintated. 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 He seems to be tolerating NIPPV (CPAP 45 LPM) and although he has not been able to prone, he has been switching from side to side. He denies any sputum production. He has asthma and frequently will get right sided chest pains w/ coughing. He denies any abdominal complaints or urinary complaints and denies any leg pain or swelling. CT scan of the chest last night demonstrated extensive bilateral ground glass opacities c/w COVID-19 but no PE and no pleural effusions. He is on Remdesivir, Baricitinib and decadron. Exam Narrative Exam Narrative: Morbidly obese white male w/ plethoric facies; wearing CPAP and lying on his right side Lungs: fine end expiratory wheezing and bibasilar rales; no rhonchi Heart: RRR, no murmur or rub Abdomen: obese, soft, nontender Extremities: no edema or cyanosis. Objective Last Vital Signs Temp 36.4 C L 12/19/20 12:00 Pulse 82 12/19/20 13:06 Resp 34 H 12/19/20 13:07 BP 137/78 12/19/20 13:06 Pulse Ox 90 L 12/19/20 13:07 Laboratory Results - last 24 hr 12/18/20 12/18/20 12/18/20 15:45 15:50 15:50 WBC RBC Hgb Hct MCV MCH MCHC RDW Plt Count MPV Immature Gran % Neutrophils % Lymphocytes % Monocytes % Eosinophils % Basophils % Nucleated RBC % Absolute Neutrophils Absolute Lymphocytes Absolute Monocytes Absolute Eosinophils Absolute Basophils RBC Morphology D-Dimer Sodium 137 Potassium 4.1 Chloride 99 Carbon Dioxide 30.5 Anion Gap 7.5 BUN 12 Creatinine 1.1 Estimated GFR/1.73 m2 >= 60.00 Glucose 96 Calcium 8.5 Ferritin 454 H Total Bilirubin 0.7 AST 144 H ALT 93 H Alkaline Phosphatase 123 H Lactate Dehydrogenase 759 H Troponin I < 0.05 C-Reactive Protein 12.13 H NT-Pro-B Natriuret Pep Total Protein 7.6 Albumin 3.0 L Procalcitonin 0.2 SARS-CoV-2 (PCR) POSITIVE A* Patient ABO/Rh Antibody Screen 12/18/20 12/18/20 12/18/20 15:50 16:30 18:28 WBC RBC Hgb Hct MCV MCH MCHC RDW Plt Count MPV Immature Gran % Neutrophils % Lymphocytes % Monocytes % Eosinophils % Basophils % Nucleated RBC % Absolute Neutrophils Absolute Lymphocytes Absolute Monocytes Absolute Eosinophils Absolute Basophils RBC Morphology D-Dimer 1004 H Sodium Potassium Chloride Carbon Dioxide Anion Gap BUN Creatinine Estimated GFR/1.73 m2 Glucose Calcium Ferritin Total Bilirubin AST ALT Alkaline Phosphatase Lactate Dehydrogenase Troponin I Cancelled C-Reactive Protein NT-Pro-B Natriuret Pep 20 Total Protein Albumin Procalcitonin SARS-CoV-2 (PCR) Patient ABO/Rh Antibody Screen 12/19/20 12/19/20 12/19/20 07:12 07:12 07:12 WBC 2.48 L D RBC 4.97 Hgb 13.1 L Hct 41.3 MCV 83.1 MCH 26.4 L MCHC 31.7 L RDW 14.3 H Plt Count 191 MPV 10.8 Immature Gran % 2.4 Neutrophils % 76.6 Lymphocytes % 13.3 Monocytes % 7.7 Eosinophils % 0.0 Basophils % 0.0 Nucleated RBC % 0 Absolute Neutrophils 1.90 Absolute Lymphocytes 0.33 L Absolute Monocytes 0.19 Absolute Eosinophils 0.00 Absolute Basophils 0.00 RBC Morphology Normal D-Dimer 1046 H Sodium 140 Potassium 4.4 Chloride 103 Carbon Dioxide 29.7 Anion Gap 7.3 BUN 12 Creatinine 0.8 Estimated GFR/1.73 m2 >= 60.00 Glucose 144 H Calcium 8.4 L Ferritin 439 H Total Bilirubin 0.6 AST 97 H ALT 77 H Alkaline Phosphatase 112 Lactate Dehydrogenase Troponin I C-Reactive Protein 12.96 H NT-Pro-B Natriuret Pep Total Protein 7.2 Albumin 2.6 L Procalcitonin SARS-CoV-2 (PCR) Patient ABO/Rh Antibody Screen 12/19/20 11:45 WBC RBC Hgb Hct MCV MCH MCHC RDW Plt Count MPV Immature Gran % Neutrophils % Lymphocytes % Monocytes % Eosinophils % Basophils % Nucleated RBC % Absolute Neutrophils Absolute Lymphocytes Absolute Monocytes Absolute Eosinophils Absolute Basophils RBC Morphology D-Dimer Sodium Potassium Chloride Carbon Dioxide Anion Gap BUN Creatinine Estimated GFR/1.73 m2 Glucose Calcium Ferritin Total Bilirubin AST ALT Alkaline Phosphatase Lactate Dehydrogenase Troponin I C-Reactive Protein NT-Pro-B Natriuret Pep Total Protein Albumin Procalcitonin SARS-CoV-2 (PCR) Patient ABO/Rh A Positive Antibody Screen NEGATIVE
--- NOTE | 2020-12-19 17:28 | INITIAL_ITS ---
- If Service Date Differs Date of service: 12/19/20 Time of Service: 17:29 Care Management Initial Assess REASON FOR HOSPITALIZATION:: Covid 19 Pneumonia PAST MEDICAL HISTORY/PAST SURGICAL HISTORY:: Medical History: Sleep apnea, morbid obesity, asthma, Covid 19, respiratory failure. PREVIOUS FUNCTIONAL STATUS/SOCIAL/FAMILY SUPPORTS:: Nicholas lives in [place]. 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 He is independent at baseline. CURRENT FUNCTIONAL STATUS:: CM is unable to meet with Nicholas due to his Covid restrictions, and he is unable to speak on the phone because of his high oxygen requirements at this time. CM called and spoke to his brother, Misty, who is also a patient, and is on his HIPAA. Misty reports that he works with Nicholas on their dairy farm in [place], and is independent at baseline. CM will continue to follow. ADVANCE DIRECTIVES:: Not on file. Has patient been provided with info about the portal/API?: No Did the patient sign up for the portal?: No CODE STATUS:: Full Code INSURANCE COVERAGE / FINANCIAL ISSUES:: Listed as self pay, CM will clarify and offer options, such as [facility] referral. CURRENT HOME/COMMUNITY SERVICES/EQUIPMENT:: No current services or equipment. PRIMARY CARE PHYSICIAN:: Kay Lemos POTENTIAL DISCHARGE NEEDS:: Evaluations for further needs, follow up appointments. PATIENT/FAMILY EDUCATION NEEDS:: Review discharge instructions, discussion of self care needs including ask me three. ANTICIPATED BARRIERS TO DISCHARGE:: May require O2 upon discharge, does not have O2 at baseline. TRANSPORTATION:: Private vehicle by family. PLAN:: Anticipate Nicholas will return home once he is medically cleared. Unclear at this time if he will require home O2. His family will drive him home via private vehicle. He will follow up with his PCP and discharge plan of care. CM will continue to follow.
[2020-12-19] MEDS: Senna TAB 1 TAB PO (22:27)
[2020-12-19] MEDS: Atorvastatin 40 MG TAB PO (22:27)
[2020-12-19] MEDS: Normal Saline Flush 10 ML SYR (23:58)
[2020-12-20] VITALS (38 sets, daily range): BP systolic 103–154; BP diastolic 61–86; PULSE 62–89; RESP 20–33; TEMP 34–37.5; O2SAT 84–95
[2020-12-20 07:40] LABS: C-Reactive Protein 5.98 mg/dL (0.0-0.3)
[2020-12-20 07:49] LABS: INR 1.1 (0.9-1.1); Prothrombin Time 10.7 sec (9.3-11.0)
[2020-12-20] MEDS: Doxycycline Hyclate 100 MG CAP PO ×2 (07:55→19:40)
[2020-12-20] MEDS: Ascorbic Acid 500 MG TAB 1000 MG PO ×2 (07:55→19:40)
[2020-12-20] MEDS: Potassium Chloride 20 MEQ TABCR PO (07:55)
[2020-12-20] MEDS: Famotidine 20 MG TAB PO ×2 (07:55→19:40)
[2020-12-20] MEDS: Cholecalciferol (Vitamin D3) 1,000 UNIT TAB 2000 UNITS PO (07:55)
[2020-12-20] MEDS: Zinc Sulfate 220 MG TAB PO (07:55)
[2020-12-20] MEDS: Enoxaparin 40 MG/0.4 ML SYR SC ×2 (07:56→19:42)
[2020-12-20] MEDS: Furosemide 20 MG TAB PO (07:56)
[2020-12-20] MEDS: Docusate Sodium 100 MG CAP PO ×3 (07:56→19:40)
[2020-12-20] MEDS: Polyethylene Glycol 3350 17 GM PACKET PO (07:56)
[2020-12-20] MEDS: Dexamethasone 10 MG/ML VIAL 6 MG IVP (07:56)
[2020-12-20] MEDS: cefTRIAXone 1 GM/50 ML BAG IVPB (07:57)
[2020-12-20 08:10] LABS: D-Dimer 849 ng/mlFEU (<500)
[2020-12-20 08:16] LABS: Ferritin 389 ng/mL (26-388)
[2020-12-20] MEDS: Budesonide/Formoterol 160/4.5 6 GM 60 PUFF INH IH ×2 (08:27→20:59)
[2020-12-20] MEDS: Ipratropium/Albuterol 4 GM 120 PUFF INH IH ×4 (08:28→20:59)
[2020-12-20 09:22] LABS: ALT 77 U/L (16-63); AST 76 U/L (15-37); Albumin 2.7 g/dL (3.4-5.0); Alkaline Phosphatase 108 U/L (46-116); Anion Gap 6.2 mmol/L (3-11); BUN 20 mg/dL (7-18); Bilirubin, Total 0.5 mg/dL (0.2-1.0); CO2 30.8 mmol/L (21.0-32.0); CREATININE 0.8 mg/dL (0.70-1.30); Calcium 8.4 mg/dL (8.5-10.1); Chloride 105 mmol/L (98-107); Glucose 155 mg/dL (74-106); Potassium 5.4 mmol/L (3.5-5.1); Sodium 142 mmol/L (136-145); Total Protein 6.5 g/dL (6.4-8.2)
[2020-12-20 09:26] LABS: HIV-1/2 Ag & Ab Screen Negative (Negative)
[2020-12-20 09:58] LABS: HBs Antibody, Qual Negative (See Note); HBs Antibody, Quant <3.1 mIU/mL (See Note); Hepatitis B Core Antibody Negative (Negative); Hepatitis B surface Ag Negative (Negative); Hepatitis C Ab w Rflx HCV PCR Negative (Negative)
--- NOTE | 2020-12-20 12:18 | NUR.NOTE ---
PT family brought him food Delivered by RN Nursing Note:
--- NOTE | 2020-12-20 12:41 | W.PM.PROGNOT ---
Date of Service Date of service: 12/20/20 Time of Service: 12:42 Assessment and Plan Assessment and plan (1) COVID-19: Status: Acute Assessment and plan: continue Baricitinib, decadron, and Remdesivir; patient is also on vitamin C, zinc and vitamin D. He is on prophylaxis level of enoxaparin but we will closely monitor his d-dimer and if it rises over 2500 then consider full anticoagulation. Low dose diuretic has been added and patient has been put on atorvastatin. Rocephin and doxycycline added pending serial negative procalcitonin levels. Patient has made marked improvement overnight. If he continues to improve on his oxygen needs then he may be able to come off of high flow nasal cannula and/or CPAP however for now it is too early to take him off of NIPPV. CC time 30 minutes (2) Asthma: Status: Chronic Assessment and plan: Bronchospasms have improved. Continue Combivent on a scheduled basis 4 times daily along with as needed albuterol. Continue Decadron as per COVID-19 protocol Qualifiers: Asthma severity: mild Asthma persistence: intermittent Asthma complication type: with acute exacerbation Qualified Code(s): J45.21 - Mild intermittent asthma with (acute) exacerbation (3) Sleep apnea: Status: Acute Assessment and plan: patient to wear CPAP as much as possible not only for his JARRETT but for his acute hypoxemic respiratory failure. Qualifiers: Sleep apnea type: obstructive Qualified Code(s): G47.33 - Obstructive sleep apnea (adult) (pediatric) (4) Respiratory failure: Status: Acute Assessment and plan: Treatment as above. Qualifiers: Chronicity: acute Respiratory failure complication: hypoxia Qualified Code(s): J96.01 - Acute respiratory failure with hypoxia (5) DVT prophylaxis: Status: Acute Assessment and plan: lovenox 40 mg SC daily although due to his large body habitus he probably should be on higher dose such as 40 mg SC q12h Subjective Subjective Interval history since last seen: Keo is doing markedly better today. He is less dyspneic. He has no chest pain. No nausea or vomiting. He has been tolerating the CPAP and when he is not on CPAP he has been on high flow oxygen per nasal cannula. His only complaint while I was in the room was that the high flow which is being given from the wall source of oxygen was too high and irritating his nose. I turned the flow down so it was just 15 L and it was more tolerable. We had a prolonged conversation and he did not get dyspneic and did not drop his oxygen saturation. I encouraged Keo to sit up in the chair as much as possible but when in bed he should attempt to prone or lie on his sides rather than on his back. Vital signs are stable oxygen saturations running in the low 90s. Potassium is a bit high at 5.4 and he was put on potassium supplementation to compensate for the furosemide. I will discontinue his potassium supplement and monitor his electrolytes. CRP is improving as well as his D-dimer is improving. He has a leukopenia with a white cell count 2400 with an absolute lymphocytopenia which is typical for Covid. Exam Narrative Exam Narrative: Morbidly obese white male who is alert and oriented and able to carry on prolonged conversation without dyspnea. HEENT is unremarkable Lungs are without wheezes he does have fine bibasilar rales no rhonchi Heart is regular rate and rhythm no murmur rub or gallop Abdomen is obese soft nontender he has a scar in the right upper quadrant consistent with previous cholecystectomy Legs without peripheral cyanosis or edema Objective Last Vital Signs Temp 36.8 C 12/20/20 08:30 Pulse 62 12/20/20 08:00 Resp 24 12/20/20 09:00 BP 132/77 12/20/20 08:00 Pulse Ox 89 L 12/20/20 09:00 Laboratory Results - last 24 hr 12/19/20 12/19/20 12/19/20 07:12 11:45 11:45 PT INR D-Dimer Sodium Potassium Chloride Carbon Dioxide Anion Gap BUN Creatinine Estimated GFR/1.73 m2 Glucose Calcium Ferritin 439 H Total Bilirubin AST ALT Alkaline Phosphatase C-Reactive Protein Total Protein Albumin Hep Bs Antigen Negative Hep Bs Antibody Negative Hep Bs Antibody, Quant <3.1 Hep B Core Total Ab Negative Hepatitis C Antibody Negative HIV 1&2 Ag/Ab, 4th Gen Negative 12/20/20 12/20/20 06:45 06:45 PT 10.7 INR 1.1 D-Dimer 849 H Sodium 142 Potassium 5.4 H Chloride 105 Carbon Dioxide 30.8 Anion Gap 6.2 BUN 20 H D Creatinine 0.8 Estimated GFR/1.73 m2 >= 60.00 Glucose 155 H Calcium 8.4 L Ferritin 389 H Total Bilirubin 0.5 AST 76 H ALT 77 H Alkaline Phosphatase 108 C-Reactive Protein 5.98 H Total Protein 6.5 Albumin 2.7 L Hep Bs Antigen Hep Bs Antibody Hep Bs Antibody, Quant Hep B Core Total Ab Hepatitis C Antibody HIV 1&2 Ag/Ab, 4th Gen
--- NOTE | 2020-12-20 12:48 | CMPROGNOTE_ITS ---
- If Service Date Differs Date of service: 12/20/20 Time of Service: 12:48 Care Management Progress Note S/O: Nicholas remains on Covid 19 precautions, therefore CM is not able to meet with him in person. CM spoke to his RN, who stated that he appears to be improving today. Per report, he is less dyspneic, has no chest pain, no nausea or vomiting. CM will continue to follow. A: Nicholas is a 50 year old male admitted to [facility] on 12/18/20 with Covid 19 Pneumonia. P: Anticipate Nicholas will return home once he is medically cleared. Unclear at this time if he will require home O2. His family will drive him home via private vehicle. He will follow up with his PCP and discharge plan of care. CM will continue to follow.
[2020-12-20] MEDS: Normal Saline Flush 10 ML SYR ×2 (18:23→19:42)
[2020-12-20] MEDS: Senna TAB 1 TAB PO (19:40)
[2020-12-20] MEDS: Atorvastatin 40 MG TAB PO (19:41)
[2020-12-21] VITALS (26 sets, daily range): BP systolic 123–182; BP diastolic 63–91; PULSE 64–80; RESP 21–22; TEMP 27–36.8; O2SAT 87–95
[2020-12-21 06:52] LABS: HCT 44.3 % (40.0-50.0); MCH 26.6 pg (27.0-33.0); MCHC 31.6 % (32.0-36.0); MCV 84.2 fL (80-95); MPV 10.7 fL (8.0-11.0); Nucleated RBC 0 %; Platelet Count 311 10^3/uL (130-400); RBC 5.26 10^6/uL (4.36-5.78); RDW 14.4 % (11.8-14.1); WBC 6.62 10^3/uL (4.4-10.8)
[2020-12-21 07:07] LABS: ALT 81 U/L (16-63); AST 62 U/L (15-37); Albumin 2.9 g/dL (3.4-5.0); Alkaline Phosphatase 110 U/L (46-116); Anion Gap 9.4 mmol/L (3-11); BUN 21 mg/dL (7-18); Bilirubin, Total 0.6 mg/dL (0.2-1.0); CO2 28.6 mmol/L (21.0-32.0); CREATININE 0.9 mg/dL (0.70-1.30); Calcium 8.7 mg/dL (8.5-10.1); Chloride 105 mmol/L (98-107); Glucose 130 mg/dL (74-106); Potassium 4.6 mmol/L (3.5-5.1); Sodium 143 mmol/L (136-145); Total Protein 7.5 g/dL (6.4-8.2)
[2020-12-21 07:25] LABS: Absolute Lymphocyte Count 1.13 10^3/uL (1.2-3.4); Absolute Neutrophil Count 5.03 10^3/uL (1.2-6.7); Atypical Lymphocytes % 6; Bands % 2; Metamyelocytes % 1
[2020-12-21 07:26] LABS: Diff Comment Manual Differential; RBC Morphology Normal
[2020-12-21 07:39] LABS: D-Dimer 613 ng/mlFEU (<500)
[2020-12-21 07:45] LABS: C-Reactive Protein 2.85 mg/dL (0.0-0.3)
[2020-12-21 08:08] LABS: Ferritin 343 ng/mL (26-388)
[2020-12-21] MEDS: Furosemide 20 MG TAB PO (08:36)
[2020-12-21] MEDS: Ascorbic Acid 500 MG TAB 1000 MG PO ×2 (08:36→20:40)
[2020-12-21] MEDS: Cholecalciferol (Vitamin D3) 1,000 UNIT TAB 2000 UNITS PO (08:37)
[2020-12-21] MEDS: Doxycycline Hyclate 100 MG CAP PO ×2 (08:37→20:39)
[2020-12-21] MEDS: Zinc Sulfate 220 MG TAB PO (08:37)
[2020-12-21] MEDS: Docusate Sodium 100 MG CAP PO ×3 (08:37→20:39)
[2020-12-21] MEDS: Famotidine 20 MG TAB PO ×2 (08:38→20:39)
[2020-12-21] MEDS: Enoxaparin 40 MG/0.4 ML SYR SC (08:38)
[2020-12-21] MEDS: Ipratropium/Albuterol 4 GM 120 PUFF INH IH ×4 (08:39→20:40)
[2020-12-21] MEDS: Budesonide/Formoterol 160/4.5 6 GM 60 PUFF INH IH ×2 (08:39→20:40)
[2020-12-21] MEDS: Polyethylene Glycol 3350 17 GM PACKET PO (08:39)
[2020-12-21] MEDS: cefTRIAXone 1 GM/50 ML BAG IVPB (08:39)
[2020-12-21] MEDS: Dexamethasone 10 MG/ML VIAL 6 MG IVP (08:40)
[2020-12-21] MEDS: Normal Saline Flush 10 ML SYR IVP (08:42)
--- NOTE | 2020-12-21 11:45 | PDOC.CMPRO ---
- If Service Date Differs Date of service: 12/21/20 Time of Service: 11:45 Care Management Progress Note S/O: Nicholas remains on Covid 19 precautions, therefore CM was not able to meet with him in person. Per RN, he is being encouraged to change position from his Left side, right side, and sitting up in the chair. He had some rectal bleeding today, which MD states is likely due to hemorrhoidal bleeding, and will be monitored. CM will continue to follow. A: Nicholas is a 50 year old male admitted to [facility] on 12/18/20 with Covid 19 Pneumonia. P: Anticipate Nicholas will return home once he is medically cleared. Unclear at this time if he will require home O2. His family will drive him home via private vehicle. He will follow up with his PCP and discharge plan of care. CM will continue to follow.
--- NOTE | 2020-12-21 13:19 | PGE_ITS ---
Date of Service Date of service: 12/21/20 Time of Service: 13:19 Assessment and Plan Assessment and plan (1) COVID-19: Status: Acute Assessment and plan: Continue baricitinib and Decadron and Remdesivir. Continue CPAP with intermittent high flow nasal cannula while eating. Encourage pulmonary toiletry with I-S and Acapella. Encourage proning or the very minimum rotating from side to side and sitting up in the chair as much as possible. (2) Asthma: Status: Chronic Assessment and plan: Bronchospasms have improved. Continue Combivent on a scheduled basis 4 times daily along with as needed albuterol. Continue Decadron as per COVID-19 protocol Qualifiers: Asthma severity: mild Asthma persistence: intermittent Asthma compl ication type: with acute exacerbation Qualified Code(s): J45.21 - Mild intermittent asthma with (acute) exacerbation (3) Sleep apnea: Status: Acute Assessment and plan: patient to wear CPAP as much as possible not only for his JARRETT but for his acute hypoxemic respiratory failure. Qualifiers: Sleep apnea type: obstructive Qualified Code(s): G47.33 - Obstructive sleep apnea (adult) (pediatric) (4) Respiratory failure: Status: Acute Assessment and plan: Treatment as above. Qualifiers: Chronicity: acute Respiratory failure complication: hypoxia Qualified Code(s): J96.01 - Acute respiratory failure with hypoxia (5) DVT prophylaxis: Status: Acute Assessment and plan: Patient has been on Lovenox 40 mg subcutaneously every 12 hours based on his body weight. In light of his recent rectal bleeding I have decreased his Lovenox to 40 mg daily. (6) Rectal bleeding: Status: Acute Assessment and plan: Probably due to hemorrhoidal bleeding. Continue to monitor. If he has recurrent bleeding will place his Lovenox on hold. Subjective Subjective Interval history since last seen: Overall the patient feels improved less dyspneic. He still has intermittent paroxysms of coughing associated with some sharp right-sided chest pain. No sputum production no fever. This morning he had some rectal bleeding which he attributed to to his hemorrhoids this is happened to him in the past. Nursing staff indicate was 150 mL of dark blood with clots. Blood count is normal with a hemoglobin of 14 g. Rest of the CBC is unremarkable except for an absolute lymphocytosis which is improving. Ly mphocytes are now up to 1130 which is near normal. His other inflammatory markers are also improving his CRP is down to 2.8. Transaminases are improving. Electrolytes and BUN/creatinine are normal. His D-dimer is down to 600. Patient's oxygen needs are still significant and that he requires high flow oxygen at 60 L/min when he is not on his CPAP. Once on CPAP his FiO2 is 45% with a flow of 38 L/min. Keo has been rotating from side to side he does not do well with proning. He likes to sit up in the chair he has been using his Acapella and incentive spirometer. Exam Narrative Exam Narrative: Morbidly obese white male lying on his left side alert and oriented person place time circumstance HEENT is remarkable for plethoric facial appearance. Chest is barrel chested he has bibasilar fine rales no rhonchi and no wheezing today. Heart is regular rate and rhythm no murmur rub or gallop Abdomen is soft and nontender he has a scar in the right upper quadrant consistent with previous cholecystectomy. He has normal bowel sounds. Extremities without peripheral cyanosis or edema. Objective Last Vital Signs Temp 36.7 C 12/21/20 03:42 Pulse 73 12/21/20 10:01 Resp 21 12/21/20 03:42 BP 157/91 H 12/21/20 10:01 Pulse Ox 95 12/21/20 12:00 Laboratory Results - last 24 hr 12/21/20 12/21/20 12/21/20 06:20 06:20 06:20 WBC RBC Hgb Hct MCV MCH MCHC RDW Plt Count MPV Immature Gran % Neutrophils % Band Neutrophils % Lymphocytes % Atypical Lymphs % Monocytes % Eosinophils % Basophils % Metamyelocytes % Nucleated RBC % Absolute Neutrophils Absolute Lymphocytes Absolute Monocytes Absolute Eosinophils Absolute Basophils RBC Morphology D-Dimer 613 H Sodium 143 Potassium 4.6 Chloride 105 Carbon Dioxide 28.6 Anion Gap 9.4 BUN 21 H Creatinine 0.9 Estimated GFR/1.73 m2 >= 60.00 Glucose 130 H Calcium 8.7 Ferritin 343 Total Bilirubin 0.6 AST 62 H ALT 81 H Alkaline Phosphatase 110 C-Reactive Protein 2.85 H Total Protein 7.5 Albumin 2.9 L 12/21/20 06:20 WBC 6.62 RBC 5.26 Hgb 14.0 Hct 44.3 MCV 84.2 MCH 26.6 L MCHC 31.6 L RDW 14.4 H Plt Count 311 D MPV 10.7 Immature Gran % 0.0 Neutrophils % 74.0 Band Neutrophils % 2 Lymphocytes % 11.0 Atypical Lymphs % 6 Monocytes % 6.0 Eosinophils % 0.0 Basophils % 0.0 Metamyelocytes % 1 Nucleated RBC % 0 Absolute Neutrophils 5.03 Absolute Lymphocytes 1.13 L Absolute Monocytes 0.40 Absolute Eosinophils 0.00 Absolute Basophils 0.00 RBC Morphology Normal D-Dimer Sodium Potassium Chloride Carbon Dioxide Anion Gap BUN Creatinine Estimated GFR/1.73 m2 Glucose Calcium Ferritin Total Bilirubin AST ALT Alkaline Phosphatase C-Reactive Protein Total Protein Albumin
--- NOTE | 2020-12-21 13:56 | W.NUTRFU ---
Date of service: 12/21/20 Time of Service: 13:57 Nutrition Note NOTE: Mr. Neri has fair PO intake on a low sodium diet. His weight has been stable. His BMI is 41.3 kg/m2 c/w class 3 obesity. Will continue to follow his progress. Time Spent in Nutritional Counseling and Treatment: 0
[2020-12-21] MEDS: Metoprolol CR 50 MG TABCR PO (14:51)
[2020-12-21 20:15] LABS: Lactate 2.2 mmol/L (0.6-1.4)
[2020-12-21] MEDS: Atorvastatin 40 MG TAB PO (20:39)
[2020-12-21 20:44] LABS: D-Dimer 569 ng/mlFEU (<500)
[2020-12-21] MEDS: Senna TAB 1 TAB PO (20:45)
[2020-12-22] VITALS (23 sets, daily range): BP systolic 116–142; BP diastolic 59–79; PULSE 56–88; RESP 18–22; TEMP 32–36.7; O2SAT 84–98
[2020-12-22 07:08] LABS: Abs Immature Grans 0.41 10^3/uL (0.0-0.06); Absolute Basophil Count 0.03 10^3/uL (0.0-0.2); Absolute Eosinophil Count 0.08 10^3/uL (0.0-0.7); Absolute Lymphocyte Count 1.13 10^3/uL (1.2-3.4); Absolute Monocyte Count 0.68 10^3/uL (0.1-0.8); Absolute Neutrophil Count 5.48 10^3/uL (1.2-6.7); Basophils % 0.4; HCT 40.4 % (40.0-50.0); HGB 12.8 g/dL (13.5-17.5); Immature Grans % 5.2; Lymphocytes % 14.5; MCH 26.4 pg (27.0-33.0); MCHC 31.7 % (32.0-36.0); MCV 83.3 fL (80-95); MPV 10.9 fL (8.0-11.0); Monocytes % 8.7; Neutrophils % 70.2; Nucleated RBC 0 %; Platelet Count 291 10^3/uL (130-400); RBC 4.85 10^6/uL (4.36-5.78); RDW 14.1 % (11.8-14.1); RDW-SD 43.2 fL; WBC 7.81 10^3/uL (4.4-10.8)
[2020-12-22 07:24] LABS: ALT 115 U/L (16-63); AST 80 U/L (15-37); Albumin 2.7 g/dL (3.4-5.0); Alkaline Phosphatase 105 U/L (46-116); Anion Gap 8.3 mmol/L (3-11); BUN 20 mg/dL (7-18); Bilirubin, Total 0.7 mg/dL (0.2-1.0); C-Reactive Protein 1.59 mg/dL (0.0-0.3); CO2 27.7 mmol/L (21.0-32.0); CREATININE 0.8 mg/dL (0.70-1.30); Calcium 8.3 mg/dL (8.5-10.1); Chloride 105 mmol/L (98-107); Glucose 87 mg/dL (74-106); Potassium 4.3 mmol/L (3.5-5.1); Sodium 141 mmol/L (136-145); Total Protein 6.7 g/dL (6.4-8.2)
[2020-12-22 08:04] LABS: Procalcitonin < 0.1 ng/mL
[2020-12-22] MEDS: Polyethylene Glycol 3350 17 GM PACKET PO (08:04)
[2020-12-22] MEDS: Docusate Sodium 100 MG CAP PO ×3 (08:05→20:32)
[2020-12-22] MEDS: Ipratropium/Albuterol 4 GM 120 PUFF INH IH ×4 (08:05→20:45)
[2020-12-22] MEDS: Cholecalciferol (Vitamin D3) 1,000 UNIT TAB 2000 UNITS PO (08:05)
[2020-12-22] MEDS: Normal Saline Flush 10 ML SYR IVP (08:05)
[2020-12-22] MEDS: Budesonide/Formoterol 160/4.5 6 GM 60 PUFF INH IH ×2 (08:05→20:45)
[2020-12-22] MEDS: Famotidine 20 MG TAB PO ×2 (08:06→20:31)
[2020-12-22] MEDS: Doxycycline Hyclate 100 MG CAP PO (08:06)
[2020-12-22] MEDS: Dexamethasone 10 MG/ML VIAL 6 MG IVP (08:06)
[2020-12-22] MEDS: Furosemide 20 MG TAB PO (08:06)
[2020-12-22] MEDS: Zinc Sulfate 220 MG TAB PO (08:06)
[2020-12-22] MEDS: Metoprolol CR 50 MG TABCR PO (08:06)
[2020-12-22] MEDS: Ascorbic Acid 500 MG TAB 1000 MG PO ×2 (08:06→20:31)
[2020-12-22 08:07] LABS: Ferritin 310 ng/mL (26-388)
[2020-12-22 08:13] LABS: RBC Morphology Normal
[2020-12-22 08:14] LABS: Diff Comment Agrees w/ Instrument
[2020-12-22 08:31] LABS: D-Dimer 991 ng/mlFEU (<500)
--- NOTE | 2020-12-22 08:49 | W.PM.PROGNOT ---
Date of Service Date of service: 12/22/20 Time of Service: 13:24 Assessment and Plan Assessment and plan (1) COVID-19: Status: Acute Assessment and plan: Stable. Titrate O2 down as tolerated. Continue remdesivir, baricitinib, dexamethasone, IS/acapella. Continue vitamin C and D supplementation, atorvastatic, pepcid. May be able to transfer out of the ICU later today vs tomorrow depending on success of weaning of the oxygen. Procalcitonin normalized - d/c abx. (2) Acute respiratory failure with hypoxia: Status: Acute Assessment and plan: As above (3) Rectal bleeding: Status: Resolved Assessment and plan: None recurred in 24 hrs. Has a h/o hemorrhoids. It was likely hemorrhoidal. Ok to increase lovenox back up - but low threshold to hold it if bleeding recurs. (4) Sleep apnea: Status: Chronic Assessment and plan: Will need outpatient sleep study - discussed with the patient. His was obtained 7-8 years ago, he states. Qualifiers: Sleep apnea type: obstructive Qualified Code(s): G47.33 - Obstructive sleep apnea (adult) (pediatric) (5) Morbid obesity: Status: Chronic Assessment and plan: BMI 41.6. As above Lifestyle modification recommended. (6) Discharge planning issues: Status: Acute Assessment and plan: Full code Consider transfer out of ICU within the next 24 hrs. Total Critical Care Time 35 minutes. (7) DVT prophylaxis: Status: Acute Assessment and plan: SC lovenox Subjective Subjective Interval history since last seen: Mr Neri states that he is feeling better. Specifically, his breathing is better. Denies dizziness, chest pain except for one spot on the right where it always bothers him, denies n/v/diarrhea. Seated in a chair on humidified heated high flow, 60 L 60%, saturating 95%. Titrating down now. Was on CPAP overnight (pressure of 12, FiO2 of 40%). Did not prone (Turned side to side and sat in a chair). Coughing a lot, but cough mostly nonproductive. UOP >1000 cc. Afebrile. Working w/ IS. Exam Narrative Exam Narrative: General: Pleasant obese male who is sitting up in a chair on humidified heated high flow, appears comfortable, no dyspnea/tachypnea/cyanosis HEENT: EOMI, MMM Heart: RRR, no m/r/g Lungs: CTAB Abdomen: soft, nontender, nondistended Extremities: no edema BLE's Objective Last Vital Signs Temp 36.2 C L 12/22/20 04:00 Pulse 76 12/22/20 06:01 Resp 21 12/21/20 03:42 BP 131/59 L 12/22/20 06:01 Pulse Ox 94 12/22/20 06:01 Laboratory Results - last 24 hr 12/21/20 12/21/20 12/22/20 20:00 20:00 06:35 WBC RBC Hgb Hct MCV MCH MCHC RDW Plt Count MPV Immature Gran % Neutrophils % Lymphocytes % Monocytes % Eosinophils % Basophils % Nucleated RBC % Absolute Neutrophils Absolute Lymphocytes Absolute Monocytes Absolute Eosinophils Absolute Basophils RBC Morphology D-Dimer 569 H VBG Lactate 2.2 H* Sodium Potassium Chloride Carbon Dioxide Anion Gap BUN Creatinine Estimated GFR/1.73 m2 Glucose Calcium Ferritin 310 Total Bilirubin AST ALT Alkaline Phosphatase C-Reactive Protein 1.59 H Total Protein Albumin Procalcitonin 12/22/20 12/22/20 12/22/20 06:35 06:35 06:35 WBC 7.81 RBC 4.85 Hgb 12.8 L Hct 40.4 MCV 83.3 MCH 26.4 L MCHC 31.7 L RDW 14.1 Plt Count 291 MPV 10.9 Immature Gran % 5.2 Neutrophils % 70.2 Lymphocytes % 14.5 Monocytes % 8.7 Eosinophils % 1.0 Basophils % 0.4 Nucleated RBC % 0 Absolute Neutrophils 5.48 Absolute Lymphocytes 1.13 L Absolute Monocytes 0.68 Absolute Eosinophils 0.08 Absolute Basophils 0.03 RBC Morphology Normal D-Dimer 991 H VBG Lactate Sodium 141 Potassium 4.3 Chloride 105 Carbon Dioxide 27.7 Anion Gap 8.3 BUN 20 H Creatinine 0.8 Estimated GFR/1.73 m2 >= 60.00 Glucose 87 Calcium 8.3 L Ferritin Total Bilirubin 0.7 AST 80 H ALT 115 H Alkaline Phosphatase 105 C-Reactive Protein Total Protein 6.7 Albumin 2.7 L Procalcitonin 12/22/20 06:35 WBC RBC Hgb Hct MCV MCH MCHC RDW Plt Count MPV Immature Gran % Neutrophils % Lymphocytes % Monocytes % Eosinophils % Basophils % Nucleated RBC % Absolute Neutrophils Absolute Lymphocytes Absolute Monocytes Absolute Eosinophils Absolute Basophils RBC Morphology D-Dimer VBG Lactate Sodium Potassium Chloride Carbon Dioxide Anion Gap BUN Creatinine Estimated GFR/1.73 m2 Glucose Calcium Ferritin Total Bilirubin AST ALT Alkaline Phosphatase C-Reactive Protein Total Protein Albumin Procalcitonin < 0.1
[2020-12-22] MEDS: cefTRIAXone 1 GM/50 ML BAG IVPB (10:30)
[2020-12-22] MEDS: Atorvastatin 40 MG TAB PO (20:32)
[2020-12-22] MEDS: Enoxaparin 40 MG/0.4 ML SYR SC (20:32)
[2020-12-22] MEDS: Senna TAB 1 TAB PO (22:24)
[2020-12-23] VITALS (44 sets, daily range): BP systolic 113–131; BP diastolic 62–73; PULSE 63–81; RESP 28; TEMP 31–37.5; O2SAT 82–97
[2020-12-23] MEDS: Normal Saline Flush 10 ML SYR IVP (01:56)
[2020-12-23 06:59] LABS: HCT 40.7 % (40.0-50.0); HGB 12.7 g/dL (13.5-17.5); MCH 26.3 pg (27.0-33.0); MCHC 31.2 % (32.0-36.0); MCV 84.4 fL (80-95); MPV 10.2 fL (8.0-11.0); Nucleated RBC 0 %; RBC 4.82 10^6/uL (4.36-5.78); RDW 13.9 % (11.8-14.1); RDW-SD 42.8 fL; WBC 8.17 10^3/uL (4.4-10.8)
[2020-12-23 07:21] LABS: ALT 114 U/L (16-63); AST 67 U/L (15-37); Albumin 2.6 g/dL (3.4-5.0); Alkaline Phosphatase 103 U/L (46-116); Anion Gap 4.5 mmol/L (3-11); BUN 18 mg/dL (7-18); Bilirubin, Total 0.8 mg/dL (0.2-1.0); CO2 31.5 mmol/L (21.0-32.0); CREATININE 0.8 mg/dL (0.70-1.30); Calcium 8.2 mg/dL (8.5-10.1); Chloride 103 mmol/L (98-107); Glucose 82 mg/dL (74-106); Magnesium 2.2 mg/dL (1.8-2.4); Potassium 4.2 mmol/L (3.5-5.1); Sodium 139 mmol/L (136-145); Total Protein 6.8 g/dL (6.4-8.2)
[2020-12-23 07:23] LABS: ALT 119 U/L (16-63); AST 70 U/L (15-37); Albumin 2.7 g/dL (3.4-5.0); Alkaline Phosphatase 106 U/L (46-116); Bilirubin, Direct 0.3 mg/dL (0.0-0.2); Bilirubin, Total 0.8 mg/dL (0.2-1.0); Total Protein 6.2 g/dL (6.4-8.2)
[2020-12-23 07:35] LABS: Platelet Count 334 10^3/uL (130-400)
[2020-12-23 07:36] LABS: Absolute Eosinophil Count 0.16 10^3/uL (0.0-0.7); Absolute Lymphocyte Count 1.14 10^3/uL (1.2-3.4); Absolute Neutrophil Count 5.72 10^3/uL (1.2-6.7); Diff Comment Manual Differential; Metamyelocytes % 1; Myelocytes % 2; RBC Morphology Normal
[2020-12-23 08:12] LABS: D-Dimer 1413 ng/mlFEU (<500)
[2020-12-23 08:13] LABS: Ferritin 300 ng/mL (26-388)
--- NOTE | 2020-12-23 08:19 | W.PM.PROGNOT ---
Date of Service Date of service: 12/23/20 Time of Service: 13:41 Assessment and Plan Assessment and plan (1) COVID-19: Status: Acute Assessment and plan: Stable. However, D-dimer did worsen. Will obtain venous dopplers and consider repeating CTA chest. Titrate O2 down as tolerated. Encourage proning Continue remdesivir, baricitinib, dexamethasone, IS/acapella. Continue vitamin C and D supplementation, atorvastatin, pepcid. Abx d/c'ed yesterday - will recheck procalcitonin. Keep in the ICU. (2) Acute respiratory failure with hypoxia: Status: Acute Assessment and plan: As above (3) Rectal bleeding: Status: Resolved Assessment and plan: None recurred despite increase in lovenox dose. Has a h/o hemorrhoids. It was likely hemorrhoidal. Continue to monitor. (4) Sleep apnea: Status: Chronic Assessment and plan: Will need outpatient sleep study - discussed with the patient. His was obtained 7-8 years ago, he states. Qualifiers: Sleep apnea type: obstructive Qualified Code(s): G47.33 - Obstructive sleep apnea (adult) (pediatric) (5) Morbid obesity: Status: Chronic Assessment and plan: BMI 41.6. As above Lifestyle modification recommended. (6) Discharge planning issues: Status: Acute Assessment and plan: Full code Keep in the ICU Total Critical Care Time 35 minutes. (7) DVT prophylaxis: Status: Acute Assessment and plan: SC lovenox Subjective Subjective Interval history since last seen: Mr Neri states that his breathing today is perfect. He is proning on humidified heated high flow when I came to see him today. He is on 55 L and 40-55% FiO2. Denies dizziness, chest pain, shortness of breath, nausea. Used CPAP for majority of the night - Pressure of 12, FiO2 40%. Did not prone, but turned side to side. UOP 1000 cc overnight. Nosebleed from high flow - stopped on its own. Exam Narrative Exam Narrative: General: Pleasant obese male who proning on humidified heated high flow, no dyspnea/tachypnea/cyanosis, looks very comfortable HEENT: EOMI, MMM Heart: RRR, no m/r/g Lungs: crackles throughout B lung groves Abdomen: soft, nontender, nondistended Extremities: trace edema BLE's Objective Last Vital Signs Temp 37.5 C 12/23/20 07:40 Pulse 80 12/23/20 07:29 Resp 28 H 12/23/20 03:45 BP 130/62 12/23/20 07:29 Pulse Ox 89 L 12/23/20 08:00 Laboratory Results - last 24 hr 12/23/20 12/23/20 12/23/20 06:20 06:20 06:20 WBC RBC Hgb Hct MCV MCH MCHC RDW Plt Count MPV Immature Gran % Neutrophils % Lymphocytes % Monocytes % Eosinophils % Basophils % Metamyelocytes % Myelocytes % Nucleated RBC % Absolute Neutrophils Absolute Lymphocytes Absolute Monocytes Absolute Eosinophils Absolute Basophils RBC Morphology D-Dimer 1413 H Sodium 139 Potassium 4.2 Chloride 103 Carbon Dioxide 31.5 Anion Gap 4.5 BUN 18 Creatinine 0.8 Estimated GFR/1.73 m2 >= 60.00 Glucose 82 Calcium 8.2 L Magnesium 2.2 Total Bilirubin 0.8 Conjugated Bilirubin AST 67 H ALT 114 H Alkaline Phosphatase 103 C-Reactive Protein 4.60 H Total Protein 6.8 Albumin 2.6 L 12/23/20 12/23/20 06:20 06:20 WBC 8.17 RBC 4.82 Hgb 12.7 L Hct 40.7 MCV 84.4 MCH 26.3 L MCHC 31.2 L RDW 13.9 Plt Count 334 MPV 10.2 Immature Gran % See Differential Neutrophils % 70.0 Lymphocytes % 14.0 Monocytes % 11.0 Eosinophils % 2.0 Basophils % 0.0 Metamyelocytes % 1 Myelocytes % 2 Nucleated RBC % 0 Absolute Neutrophils 5.72 Absolute Lymphocytes 1.14 L Absolute Monocytes 0.90 H Absolute Eosinophils 0.16 Absolute Basophils 0.00 RBC Morphology Normal D-Dimer Sodium Potassium Chloride Carbon Dioxide Anion Gap BUN Creatinine Estimated GFR/1.73 m2 Glucose Calcium Magnesium Total Bilirubin 0.8 Conjugated Bilirubin 0.3 H AST 70 H ALT 119 H Alkaline Phosphatase 106 C-Reactive Protein Total Protein 6.2 L Albumin 2.7 L
[2020-12-23] MEDS: Docusate Sodium 100 MG CAP PO ×2 (08:47→17:22)
[2020-12-23] MEDS: Cholecalciferol (Vitamin D3) 1,000 UNIT TAB 2000 UNITS PO (08:47)
[2020-12-23] MEDS: Zinc Sulfate 220 MG TAB PO (08:47)
[2020-12-23] MEDS: Famotidine 20 MG TAB PO ×2 (08:47→18:34)
[2020-12-23] MEDS: Metoprolol CR 50 MG TABCR PO (08:47)
[2020-12-23] MEDS: Ascorbic Acid 500 MG TAB 1000 MG PO ×2 (08:47→18:34)
[2020-12-23] MEDS: Dexamethasone 10 MG/ML VIAL 6 MG IVP (08:47)
[2020-12-23] MEDS: Polyethylene Glycol 3350 17 GM PACKET PO (08:47)
[2020-12-23] MEDS: Furosemide 20 MG TAB PO ×2 (08:47→17:22)
[2020-12-23] MEDS: Enoxaparin 40 MG/0.4 ML SYR SC ×2 (08:48→18:34)
[2020-12-23] MEDS: Ipratropium/Albuterol 4 GM 120 PUFF INH IH ×2 (11:10→18:36)
[2020-12-23] MEDS: Budesonide/Formoterol 160/4.5 6 GM 60 PUFF INH IH ×2 (11:10→18:35)
[2020-12-23] MEDS: Atorvastatin 40 MG TAB PO (18:34)
--- NOTE | 2020-12-23 19:20 | RESPIRATORY ---
Pt remained on HFNC today at 60L 45%. We have been unable to titrate his oxygen down today. He will be using the CPAP tonight and the plan is for the nurse to increase the PEEP from 12 to 14 initially and if tolerated well, up to 16 later in the night to see if we can improve his oxygenation.
[2020-12-23] MEDS: Senna TAB 1 TAB PO (22:16)
[2020-12-24] VITALS (38 sets, daily range): BP systolic 107–149; BP diastolic 48–84; PULSE 61–94; RESP 16–28; TEMP 31–37.3; O2SAT 89–97
[2020-12-24 07:23] LABS: HCT 39.7 % (40.0-50.0); HGB 12.6 g/dL (13.5-17.5); MCH 26.6 pg (27.0-33.0); MCHC 31.7 % (32.0-36.0); MCV 83.8 fL (80-95); MPV 10.3 fL (8.0-11.0); Nucleated RBC 0 %; Platelet Count 380 10^3/uL (130-400); RBC 4.74 10^6/uL (4.36-5.78); RDW 13.8 % (11.8-14.1); RDW-SD 42.4 fL; WBC 8.63 10^3/uL (4.4-10.8)
[2020-12-24 07:27] LABS: INR 1.1 (0.9-1.1); Prothrombin Time 11.5 sec (9.3-11.0)
[2020-12-24 07:57] LABS: D-Dimer 1295 ng/mlFEU (<500)
--- NOTE | 2020-12-24 08:00 | DI.US_ITS ---
Exam(s) US EXTREMITY VENOUS BI EXAM: US EXTREMITY VENOUS BI CLINICAL HISTORY: worsening D-dimer, COVID-19, BLE edema. TECHNIQUE: Bilateral lower extremity venous ultrasound performed using grayscale, color-flow, and sp ectral Doppler analysis. COMPARISON: No exams were available for comparison FINDINGS: The bilateral common femoral, femoral and popliteal veins demonstrate normal compressibility, augment ation, and color Doppler. The posterior tibial veins are patent. The saphenofemoral junctions are unr emarkable. There is no evidence of a Figueroa's cyst. The soft tissues are unremarkable. IMPRESSION: Right: Negative for DVT Left: Negative for DVT DATA REPOSITORY:
[2020-12-24 08:06] LABS: Absolute Eosinophil Count 0.09 10^3/uL (0.0-0.7); Absolute Lymphocyte Count 1.47 10^3/uL (1.2-3.4); Absolute Monocyte Count 1.12 10^3/uL (0.1-0.8); Absolute Neutrophil Count 5.78 10^3/uL (1.2-6.7); Atypical Lymphocytes % 3; Bands % 3; Diff Comment Manual Differential; Metamyelocytes % 2; RBC Morphology Normal
--- NOTE | 2020-12-24 08:07 | W.PM.PROGNOT ---
Date of Service Date of service: 12/24/20 Time of Service: 15:03 Assessment and Plan Assessment and plan (1) COVID-19: Status: Acute Assessment and plan: Stable. D- dimer better today. Venous dopplers negative. Titrate O2 down as tolerated. Encourage proning Continue remdesivir, baricitinib, dexamethasone, IS/acapella. Continue vitamin C and D supplementation, atorvastatin, pepcid. Keep in the ICU. (2) Acute respiratory failure with hypoxia: Status: Acute Assessment and plan: As above (3) Rectal bleeding: Status: Resolved Assessment and plan: None recurred despite increase in lovenox dose. Has a h/o hemorrhoids. It was likely hemorrhoidal. Continue to monitor. (4) Sleep apnea: Status: Chronic Assessment and plan: Will need outpatient sleep study - discussed with the patient. His was obtained 7-8 years ago, he states. Qualifiers: Sleep apnea type: obstructive Qualified Code(s): G47.33 - Obstructive sleep apnea (adult) (pediatric) (5) Morbid obesity: Status: Chronic Assessment and plan: BMI 41.6. As above Lifestyle modification recommended. (6) Discharge planning issues: Status: Acute Assessment and plan: Full code Keep in the ICU Total Critical Care Time [address] Hairston (7) DVT prophylaxis: Status: Acute Assessment and plan: SC lovenox Subjective Subjective Interval history since last seen: Mr Neri feels better. Denies dizziness, states the sore spot on the chest is no longer bothering him. Denies SOB while on high flow, denies n/v. No blood in stool. On 60 L 45% FiO2. O2 sat is 92%. Slept on CPAP 40%. Wheezy this am, but not now. Exam Narrative Exam Narrative: General: Pleasant obese male who is seated in a chair, on humidified heated high flow, no dyspnea/tachypnea/cyanosis, looks comfortable and better than yesterday HEENT: EOMI, MMM Heart: RRR, no m/r/g Lungs: CTAB Abdomen: soft, nontender, nondistended Extremities: trace edema BLE's, R>L Objective Last Vital Signs Temp 36.4 C L 12/24/20 04:43 Pulse 75 12/24/20 07:30 Resp 18 12/24/20 01:00 BP 107/48 L 12/24/20 07:30 Pulse Ox 92 12/24/20 07:30 Laboratory Results - last 24 hr 12/23/20 12/23/20 12/24/20 06:20 06:20 06:10 WBC 8.63 RBC 4.74 Hgb 12.6 L Hct 39.7 L MCV 83.8 MCH 26.6 L MCHC 31.7 L RDW 13.8 Plt Count 380 MPV 10.3 Immature Gran % 0.0 Neutrophils % 64.0 Band Neutrophils % 3 Lymphocytes % 14.0 Atypical Lymphs % 3 Monocytes % 13.0 Eosinophils % 1.0 Basophils % 0.0 Metamyelocytes % 2 Nucleated RBC % 0 Absolute Neutrophils 5.78 Absolute Lymphocytes 1.47 Absolute Monocytes 1.12 H Absolute Eosinophils 0.09 Absolute Basophils 0.00 RBC Morphology Normal D-Dimer 1413 H Ferritin 300 12/24/20 06:10 WBC RBC Hgb Hct MCV MCH MCHC RDW Plt Count MPV Immature Gran % Neutrophils % Band Neutrophils % Lymphocytes % Atypical Lymphs % Monocytes % Eosinophils % Basophils % Metamyelocytes % Nucleated RBC % Absolute Neutrophils Absolute Lymphocytes Absolute Monocytes Absolute Eosinophils Absolute Basophils RBC Morphology D-Dimer 1295 H Ferritin Objective Narrative Objective Narrative: Venous dopplers BLE's: Right: Negative for DVT Left: Negative for DVT
[2020-12-24 08:21] LABS: ALT 112 U/L (16-63); AST 54 U/L (15-37); Albumin 2.5 g/dL (3.4-5.0); Alkaline Phosphatase 99 U/L (46-116); Anion Gap 7.6 mmol/L (3-11); BUN 17 mg/dL (7-18); Bilirubin, Direct 0.2 mg/dL (0.0-0.2); Bilirubin, Total 0.7 mg/dL (0.2-1.0); C-Reactive Protein 5.14 mg/dL (0.0-0.3); CO2 27.4 mmol/L (21.0-32.0); CREATININE 0.7 mg/dL (0.70-1.30); Calcium 8.2 mg/dL (8.5-10.1); Chloride 104 mmol/L (98-107); Glucose 97 mg/dL (74-106); Magnesium 2.3 mg/dL (1.8-2.4); Potassium 4.1 mmol/L (3.5-5.1); Sodium 139 mmol/L (136-145); Total Protein 6.7 g/dL (6.4-8.2)
[2020-12-24] MEDS: Polyethylene Glycol 3350 17 GM PACKET PO (08:27)
[2020-12-24] MEDS: Metoprolol CR 50 MG TABCR PO (08:27)
[2020-12-24] MEDS: Dexamethasone 10 MG/ML VIAL 6 MG IVP (08:27)
[2020-12-24] MEDS: Ascorbic Acid 500 MG TAB 1000 MG PO ×2 (08:27→22:11)
[2020-12-24] MEDS: Docusate Sodium 100 MG CAP PO ×3 (08:28→22:11)
[2020-12-24] MEDS: Famotidine 20 MG TAB PO ×2 (08:28→22:11)
[2020-12-24] MEDS: Cholecalciferol (Vitamin D3) 1,000 UNIT TAB 2000 UNITS PO (08:28)
[2020-12-24] MEDS: guaiFENesin 600 MG TABCR PO ×2 (08:28→22:10)
[2020-12-24] MEDS: Albuterol HFA 8 GM 60 PUFF INH IH (08:28)
[2020-12-24] MEDS: Normal Saline Flush 10 ML SYR IVP (08:28)
[2020-12-24] MEDS: Zinc Sulfate 220 MG TAB PO (08:28)
[2020-12-24] MEDS: Furosemide 20 MG TAB PO ×2 (08:28→17:07)
[2020-12-24] MEDS: Budesonide/Formoterol 160/4.5 6 GM 60 PUFF INH IH ×2 (08:29→22:12)
[2020-12-24] MEDS: Ipratropium/Albuterol 4 GM 120 PUFF INH IH ×4 (08:29→22:12)
[2020-12-24 09:00] LABS: Ferritin 288 ng/mL (26-388)
--- NOTE | 2020-12-24 12:59 | PDOC.CMPRO ---
- If Service Date Differs Date of service: 12/24/20 Time of Service: 13:00 Care Management Progress Note S/O: Nicholas remains on precautions for Covid 19, therefore CM was unable to meet with him. Per report, he is on 60L 45% FiO2, O2 sat is 92%. His O2 will continue to be weaned, as tolerated. He continues to meet criteria for ICU level of care. CM will continue to follow. A: Nicholas is a 50 year old male admitted to [facility] on 12/18/20 with Covid 19 Pneumonia. P: Anticipate Nicholas will return home once he is medically cleared. Unclear at this time if he will require home O2. His family will drive him home via private vehicle. He will follow up with his PCP and discharge plan of care. CM will continue to follow.
[2020-12-24] MEDS: Enoxaparin 40 MG/0.4 ML SYR SC ×2 (13:54→22:10)
--- NOTE | 2020-12-24 16:21 | PUCC_ITS ---
General Date of Service Date of service: 12/24/20 Time of Service: 08:15 Reason for Admission to ICU: COVID Assessment and Plan Assessment and plan (1) Acute respiratory failure with hypoxia: Status: Acute (2) Asthma: Status: Chronic Qualifiers: Asthma severity: mild Asthma persistence: intermittent Asthma complication type: with acute exacerbation Qualified Code(s): J45.21 - Mild intermittent asthma with (acute) exacerbation (3) COVID-19: Status: Acute (4) Morbid obesity: Status: Chronic (5) Transaminitis: Status: Acute Recommendations Pulmonary: Hypoxic respiratory failure - HFNC during the day, CPAP at night - IS and VibraPEP - continue prn albuterol - sat goal >90% Asthma - recommend discontinuing Combivent - continue home Symbicort - rinse mouth after use - continue albuterol prn Cardiac: No acute concerns Renal: No acute concerns I&O: Intake & Output 12/22/20 12/23/20 12/23/20 12/24/20 00:59 00:59 23:59 23:59 Intake Total 430 / 430 Output Total 1075 / 1075 Balance -645 / -645 Weight 155.4 kg Daily Fluid Goal:: recommend negative fluid balance - negative 1L in 24 hours GI Nutrition: OK for PO diet Date of Last Bowel Movement: 12/21/20 Infectious Disease: COVID-19 - agree with remdesivir, barcitinib and Decadron Hematologic: no acute concerns Neurologic: no acute concerns Endocrine: monitor glucose levels while on steroids Lines: PIV Prophylaxis: Lovenox and famotidine Code Status: Resuscitation Status Full Code Subjective Critical and life-threatening events over the past 24 hours: This is a 50-year-old unvaccinated man who was exposed to a Covid positive coworker who presented to the emergency department after 8 days of cough, body aches, shortness of breath. Found to be Covid positive. He does not have asthma and uses Symbicort and as needed albuterol inhaler for this. On my assessment this morning he was on high flow nasal cannula at 60L and 45% FiO2 sitting in a recliner. He states he does get short of breath but is working his best to stay out of bed and walk around a little bit. He is compliant with wearing CPAP overnight but does find it difficult for problem. He has a good appetite and is anxious to go home. Exam Const General: no acute distress Nutritional Appearance: well nourished [facility] Head: normocephalic Ears: external ears normal and no periauricular adenopathy General nose exam: nasal mucous membranes and turbinates normal Face and sinus: sinuses nontender Mouth: oropharynx normal and moist mucous membranes Teeth and gingiva: dentition normal Eyes General: appearance normal, both eyes and all related structures Pupils: PERRL Neck Neck: normal visual inspection and no lymphadenopathy Chest Chest: normal inspection of the chest Resp Effort & Inspection: normal respiratory effort Auscultation: clear to auscultation bilaterally, no rales, no rhonchi and wheezes Cardio Rate: regular rate Rhythm: regular rhythm Heart Sounds: S1 normal, S2 normal and no murmurs Pulses: radial pulses present bilaterally GI Inspection: normal to inspection Palpation: soft Skin General skin exam: no rashes or lesions noted Neuro General: patient alert, patient awake and patient oriented x3 Extrem General: no clubbing, cyanosis or edema Psych Mental Status: mental status grossly normal Affect: normal affect Attitude: cooperative Most Recent VS/Results Last Vital Signs Temp 37.3 C 12/24/20 14:15 Pulse 82 12/24/20 14:15 Resp 16 12/24/20 14:15 BP 114/84 12/24/20 14:15 Pulse Ox 89 L 12/24/20 14:15 Laboratory Results - last 24 hr 12/24/20 12/24/20 12/24/20 06:10 06:10 06:10 WBC 8.63 RBC 4.74 Hgb 12.6 L Hct 39.7 L MCV 83.8 MCH 26.6 L MCHC 31.7 L RDW 13.8 Plt Count 380 MPV 10.3 Immature Gran % 0.0 Neutrophils % 64.0 Band Neutrophils % 3 Lymphocytes % 14.0 Atypical Lymphs % 3 Monocytes % 13.0 Eosinophils % 1.0 Basophils % 0.0 Metamyelocytes % 2 Nucleated RBC % 0 Absolute Neutrophils 5.78 Absolute Lymphocytes 1.47 Absolute Monocytes 1.12 H Absolute Eosinophils 0.09 Absolute Basophils 0.00 RBC Morphology Normal PT 11.5 H INR 1.1 D-Dimer 1295 H Sodium 139 Potassium 4.1 Chloride 104 Carbon Dioxide 27.4 Anion Gap 7.6 BUN 17 Creatinine 0.7 Estimated GFR/1.73 m2 >= 60.00 Glucose 97 Calcium 8.2 L Magnesium 2.3 Ferritin 288 Total Bilirubin 0.7 Conjugated Bilirubin 0.2 AST 54 H ALT 112 H Alkaline Phosphatase 99 C-Reactive Protein 5.14 H Total Protein 6.7 Albumin 2.5 L Review of Systems All systems reviewed & are unremarkable except as noted in HPI and below Time spent with patient Time spent in Critical Care: 45 Time spent in Critical care included: Coordination of care, Chart review, Documenting critically ill care, Time at immediate bedside and Discussing critically ill care with other medical staff
[2020-12-24] MEDS: Atorvastatin 40 MG TAB PO (22:10)
[2020-12-24] MEDS: Senna TAB 1 TAB PO (22:11)
[2020-12-25] VITALS (15 sets, daily range): BP systolic 116–138; BP diastolic 61–83; PULSE 63–81; RESP 17–18; TEMP 31–37.1; O2SAT 91–95
[2020-12-25] MEDS: Normal Saline Flush 10 ML SYR IVP (00:37)
[2020-12-25 06:55] LABS: HCT 41.7 % (40.0-50.0); HGB 13.3 g/dL (13.5-17.5); MCH 26.5 pg (27.0-33.0); MCHC 31.9 % (32.0-36.0); MCV 83.2 fL (80-95); Nucleated RBC 0 %; RBC 5.01 10^6/uL (4.36-5.78); RDW 13.9 % (11.8-14.1); RDW-SD 41.9 fL; WBC 9.49 10^3/uL (4.4-10.8)
[2020-12-25 07:27] LABS: Absolute Eosinophil Count 0.28 10^3/uL (0.0-0.7); Absolute Lymphocyte Count 1.71 10^3/uL (1.2-3.4); Absolute Monocyte Count 0.57 10^3/uL (0.1-0.8); Absolute Neutrophil Count 6.36 10^3/uL (1.2-6.7); Bands % 5; Diff Comment Manual Differential; Metamyelocytes % 4; Myelocytes % 2; Platelet Count 390 10^3/uL (130-400); RBC Morphology Normal
[2020-12-25 07:35] LABS: INR 1.1 (0.9-1.1); Prothrombin Time 10.9 sec (9.3-11.0)
[2020-12-25 07:40] LABS: D-Dimer 1199 ng/mlFEU (<500)
[2020-12-25 07:55] LABS: Procalcitonin < 0.1 ng/mL
--- NOTE | 2020-12-25 08:11 | W.PM.PROGNOT ---
Date of Service Date of service: 12/25/20 Time of Service: 11:15 Assessment and Plan Assessment and plan (1) COVID-19: Status: Acute Assessment and plan: Improving. D- dimer improving Venous dopplers negative. Titrate O2 down as tolerated. Encourage proning Continue remdesivir, baricitinib, dexamethasone, IS/acapella. Continue vitamin C and D supplementation, atorvastatin, pepcid. [facility] (2) Acute respiratory failure with hypoxia: Status: Acute Assessment and plan: As above (3) Rectal bleeding: Status: Resolved Assessment and plan: ? recurred - we are trying to clarify this. Has a h/o hemorrhoids. It was likely hemorrhoidal. Continue to monitor. I did write for prn suppositories. (4) Sleep apnea: Status: Chronic Assessment and plan: Will need outpatient sleep study - discussed with the patient. His was obtained 7-8 years ago, he states. Qualifiers: Sleep apnea type: obstructive Qualified Code(s): G47.33 - Obstructive sleep apnea (adult) (pediatric) (5) Morbid obesity: Status: Chronic Assessment and plan: BMI 41.6. As above Lifestyle modification recommended. (6) Discharge planning issues: Status: Acute Assessment and plan: Full code [facility] Discussed with Dr Hairston (7) DVT prophylaxis: Status: Acute Assessment and plan: SC lovenox Subjective Subjective Interval history since last seen: Feels better. Transitioned to 6L of O2 by HFNC. Denies dizziness, chest pain, shortness of breath, nausea/vomiting. [facility] Spent the night on CPAP, PEEP of 12, 45% FiO2 overnight. High Flow 40L - 40% FiO2 93% sats. Large BM. ? hemorrhoidal bleeding. 700 cc out. Wheezing throughout per nursing, but not at the time of my exam, and the patient feels like his wheezing has resolved. Exam Narrative Exam Narrative: General: Pleasant obese male who is seated in a chair, on 6 L of O2 by NC, no dyspnea/tachypnea/cyanosis, looks well HEENT: EOMI, MMM Heart: RRR, no m/r/g Lungs: CTAB Abdomen: soft, nontender, nondistended Extremities: trace edema BLE's, R>L Objective Last Vital Signs Temp 36.5 C 12/25/20 04:09 Pulse 70 12/25/20 04:09 Resp 17 12/25/20 04:09 BP 138/68 12/25/20 00:42 Pulse Ox 92 12/25/20 04:09 Laboratory Results - last 24 hr 12/24/20 12/25/20 12/25/20 06:10 06:25 06:25 WBC 9.49 RBC 5.01 Hgb 13.3 L Hct 41.7 MCV 83.2 MCH 26.5 L MCHC 31.9 L RDW 13.9 Plt Count 390 MPV 11.0 Immature Gran % 0.0 Neutrophils % 62.0 Band Neutrophils % 5 Lymphocytes % 18.0 Monocytes % 6.0 Eosinophils % 3.0 Basophils % 0.0 Metamyelocytes % 4 Myelocytes % 2 Nucleated RBC % 0 Absolute Neutrophils 6.36 Absolute Lymphocytes 1.71 Absolute Monocytes 0.57 Absolute Eosinophils 0.28 Absolute Basophils 0.00 RBC Morphology Normal PT INR D-Dimer Sodium 139 Potassium 4.1 Chloride 104 Carbon Dioxide 27.4 Anion Gap 7.6 BUN 17 Creatinine 0.7 Estimated GFR/1.73 m2 >= 60.00 Glucose 97 Calcium 8.2 L Magnesium 2.3 Ferritin 288 Total Bilirubin 0.7 Conjugated Bilirubin 0.2 AST 54 H ALT 112 H Alkaline Phosphatase 99 C-Reactive Protein 5.14 H Total Protein 6.7 Albumin 2.5 L Procalcitonin < 0.1 12/25/20 06:25 WBC RBC Hgb Hct MCV MCH MCHC RDW Plt Count MPV Immature Gran % Neutrophils % Band Neutrophils % Lymphocytes % Monocytes % Eosinophils % Basophils % Metamyelocytes % Myelocytes % Nucleated RBC % Absolute Neutrophils Absolute Lymphocytes Absolute Monocytes Absolute Eosinophils Absolute Basophils RBC Morphology PT 10.9 INR 1.1 D-Dimer 1199 H Sodium Potassium Chloride Carbon Dioxide Anion Gap BUN Creatinine Estimated GFR/1.73 m2 Glucose Calcium Magnesium Ferritin Total Bilirubin Conjugated Bilirubin AST ALT Alkaline Phosphatase C-Reactive Protein Total Protein Albumin Procalcitonin
[2020-12-25 09:01] LABS: Albumin 2.8 g/dL (3.4-5.0); Alkaline Phosphatase 108 U/L (46-116); BUN 18 mg/dL (7-18); Bilirubin, Total 0.6 mg/dL (0.2-1.0); CREATININE 0.7 mg/dL (0.70-1.30); Calcium 8.2 mg/dL (8.5-10.1); Glucose 131 mg/dL (74-106); Sodium 140 mmol/L (136-145); Total Protein 6.6 g/dL (6.4-8.2)
[2020-12-25 09:02] LABS: ALT 122 U/L (16-63); AST 47 U/L (15-37); Anion Gap 7.3 mmol/L (3-11); Bilirubin, Direct 0.3 mg/dL (0.0-0.2); C-Reactive Protein 3.89 mg/dL (0.0-0.3); CO2 27.7 mmol/L (21.0-32.0); Chloride 105 mmol/L (98-107); Ferritin 287 ng/mL (26-388); Magnesium 2.3 mg/dL (1.8-2.4); Potassium 4.9 mmol/L (3.5-5.1)
[2020-12-25] MEDS: Dexamethasone 10 MG/ML VIAL 6 MG IVP (10:17)
[2020-12-25] MEDS: Polyethylene Glycol 3350 17 GM PACKET PO ×2 (10:17→22:01)
[2020-12-25] MEDS: Enoxaparin 40 MG/0.4 ML SYR SC ×2 (10:17→22:01)
[2020-12-25] MEDS: Cholecalciferol (Vitamin D3) 1,000 UNIT TAB 2000 UNITS PO (10:18)
[2020-12-25] MEDS: Ascorbic Acid 500 MG TAB 1000 MG PO ×2 (10:18→22:04)
[2020-12-25] MEDS: Zinc Sulfate 220 MG TAB PO (10:18)
[2020-12-25] MEDS: Famotidine 20 MG TAB PO ×2 (10:18→22:02)
[2020-12-25] MEDS: Docusate Sodium 100 MG CAP PO ×3 (10:18→22:04)
[2020-12-25] MEDS: guaiFENesin 600 MG TABCR PO ×2 (10:18→22:01)
[2020-12-25] MEDS: Metoprolol CR 50 MG TABCR PO (10:18)
[2020-12-25] MEDS: Senna TAB 1 TAB PO ×2 (10:18→22:02)
[2020-12-25] MEDS: Furosemide 20 MG TAB PO ×2 (10:18→17:03)
[2020-12-25] MEDS: Budesonide/Formoterol 160/4.5 6 GM 60 PUFF INH IH ×2 (10:19→22:07)
--- NOTE | 2020-12-25 12:13 | W.PULMCC ---
General Date of Service Date of service: 12/24/20 Time of Service: 08:15 Reason for Admission to ICU: COVID Assessment and Plan Assessment and plan (1) Acute respiratory failure with hypoxia: Status: Acute (2) Asthma: Status: Chronic Qualifiers: Asthma severity: mild Asthma persistence: intermittent Asthma complication type: with acute exacerbation Qualified Code(s): J45.21 - Mild intermittent asthma with (acute) exacerbation (3) COVID-19: Status: Acute (4) Morbid obesity: Status: Chronic (5) Transaminitis: Status: Acute Assessment and plan: This is a 50-year-old man hospitalized for Covid pneumonia with hypoxic respiratory failure who has made extremely good improvements this week. He is compliant with wearing CPAP at night and his high flow settings have decreased significantly. He was wheezing yesterday on examination however today he sounds very clear. He no longer has critical care needs and will be safe for transfer to med/surg. Recommendations Pulmonary: Hypoxic respiratory failure - HFNC during the day, CPAP at night - IS and VibraPEP - continue prn albuterol - sat goal >90% Asthma - recommend discontinuing Combivent - continue home Symbicort - rinse mouth after use - continue albuterol prn Cardiac: No acute concerns Renal: No acute concerns I&O: Intake & Output 12/23/20 12/23/20 12/24/20 12/25/20 00:59 23:59 23:59 23:59 Intake Total 900 / 900 480 / 480 Output Total 1525 / 1525 700 / 700 Balance -625 / -625 -220 / -220 Weight 155.4 kg 154.9 kg Daily Fluid Goal:: Negative 500cc to negative 1L in 24 hours GI Nutrition: Ok for PO Mild transaminitis - continue to monitor Date of Last Bowel Movement: 12/21/20 Infectious Disease: COVID-19 - agree with remdesivir, barcitinib and Decadron Hematologic: No acute concerns Neurologic: No acute concerns Endocrine: monitor glucose levels while on steroids Lines: PIV Prophylaxis: Lovenox and famotidine Code Status: Resuscitation Status Full Code Subjective Critical and life-threatening events over the past 24 hours: This is a 50-year-old unvaccinated man who was exposed to a Covid positive coworker who presented to the emergency department after 8 days of cough, body aches, shortness of breath. Found to be Covid positive. He does not have asthma and uses Symbicort and as needed albuterol inhaler for this. This morning Keo is doing quite well. His high flow settings have improved as he is on 36% FiO2 and 40 L/min. He remained on CPAP overnight and continues to get up and walk around the room. He feels as though his breathing has improved, he has a good appetite. Exam Const General: no acute distress Nutritional Appearance: well nourished [facility] Head: normocephalic Ears: external ears normal and no periauricular adenopathy General nose exam: nasal mucous membranes and turbinates normal Face and sinus: sinuses nontender Mouth: oropharynx normal and moist mucous membranes Teeth and gingiva: dentition normal Eyes General: appearance normal, both eyes and all related structures Pupils: PERRL Neck Neck: normal visual inspection and no lymphadenopathy Chest Chest: normal inspection of the chest Resp Effort & Inspection: normal respiratory effort Auscultation: clear to auscultation bilaterally, no rales, no rhonchi and no wheezes Cardio Rate: regular rate Rhythm: regular rhythm Heart Sounds: S1 normal, S2 normal and no murmurs Pulses: radial pulses present bilaterally GI Inspection: normal to inspection Palpation: soft Skin General skin exam: no rashes or lesions noted Neuro General: patient alert, patient awake and patient oriented x3 Extrem General: no clubbing, cyanosis or edema Psych Mental Status: mental status grossly normal Affect: normal affect Attitude: cooperative Most Recent VS/Results Last Vital Signs Temp 36.5 C 12/25/20 04:09 Pulse 66 12/25/20 05:53 Resp 17 12/25/20 04:09 BP 130/83 12/25/20 05:53 Pulse Ox 91 L 12/25/20 05:53 Laboratory Results - last 24 hr 12/25/20 12/25/20 12/25/20 06:25 06:25 06:25 WBC 9.49 RBC 5.01 Hgb 13.3 L Hct 41.7 MCV 83.2 MCH 26.5 L MCHC 31.9 L RDW 13.9 Plt Count 390 MPV 11.0 Immature Gran % 0.0 Neutrophils % 62.0 Band Neutrophils % 5 Lymphocytes % 18.0 Monocytes % 6.0 Eosinophils % 3.0 Basophils % 0.0 Metamyelocytes % 4 Myelocytes % 2 Nucleated RBC % 0 Absolute Neutrophils 6.36 Absolute Lymphocytes 1.71 Absolute Monocytes 0.57 Absolute Eosinophils 0.28 Absolute Basophils 0.00 RBC Morphology Normal PT INR D-Dimer Sodium 140 Potassium 4.9 Chloride 105 Carbon Dioxide 27.7 Anion Gap 7.3 BUN 18 Creatinine 0.7 Estimated GFR/1.73 m2 >= 60.00 Glucose 131 H Calcium 8.2 L Magnesium 2.3 Ferritin 287 Total Bilirubin 0.6 Conjugated Bilirubin 0.3 H AST 47 H ALT 122 H Alkaline Phosphatase 108 C-Reactive Protein 3.89 H Total Protein 6.6 Albumin 2.8 L Procalcitonin < 0.1 12/25/20 06:25 WBC RBC Hgb Hct MCV MCH MCHC RDW Plt Count MPV Immature Gran % Neutrophils % Band Neutrophils % Lymphocytes % Monocytes % Eosinophils % Basophils % Metamyelocytes % Myelocytes % Nucleated RBC % Absolute Neutrophils Absolute Lymphocytes Absolute Monocytes Absolute Eosinophils Absolute Basophils RBC Morphology PT 10.9 INR 1.1 D-Dimer 1199 H Sodium Potassium Chloride Carbon Dioxide Anion Gap BUN Creatinine Estimated GFR/1.73 m2 Glucose Calcium Magnesium Ferritin Total Bilirubin Conjugated Bilirubin AST ALT Alkaline Phosphatase C-Reactive Protein Total Protein Albumin Procalcitonin Review of Systems All systems reviewed & are unremarkable except as noted in HPI and below Time spent with patient Time spent in Critical Care: 35 Time spent in Critical care included: Coordination of care, Chart review, Documenting critically ill care, Time at immediate bedside and Discussing critically ill care with other medical staff
[2020-12-25] MEDS: Albuterol HFA 8 GM 60 PUFF INH IH (17:03)
--- NOTE | 2020-12-25 18:31 | PDOC.CMPRO ---
- If Service Date Differs Date of service: 12/25/20 Time of Service: 18:31 Care Management Progress Note S/O: Nicholas was transferred to [facility] surge status today, as he continues to improve, and he was moved to the med surge floor. He is currently on 6L O2 by high flow nasal canula. Staff will continue to encourage proning. CM will attempt to reach Nicholas by room phone, as he is no longer wearing a mask continuously, and he will have better access to a phone in his current room. CM will continue to follow. A: Nicholas is a 50 year old male admitted to [facility] on 12/18/20 with Covid 19 Pneumonia. P: Anticipate Nicholas will return home once he is medically cleared. Unclear at this time if he will require home O2. His family will drive him home via private vehicle. He will follow up with his PCP and discharge plan of care. CM will continue to follow.
[2020-12-25] MEDS: Atorvastatin 40 MG TAB PO (22:03)
[2020-12-26] VITALS (8 sets, daily range): BP systolic 115–135; BP diastolic 58–73; PULSE 56–73; RESP 16–18; TEMP 35.5–36.2; O2SAT 91–96
[2020-12-26 07:15] LABS: HCT 39.7 % (40.0-50.0); HGB 12.6 g/dL (13.5-17.5); MCH 26.4 pg (27.0-33.0); MCHC 31.7 % (32.0-36.0); MCV 83.2 fL (80-95); MPV 10.3 fL (8.0-11.0); Nucleated RBC 0 %; Platelet Count 415 10^3/uL (130-400); RBC 4.77 10^6/uL (4.36-5.78); RDW 13.7 % (11.8-14.1); RDW-SD 41.5 fL; WBC 7.79 10^3/uL (4.4-10.8)
[2020-12-26 07:27] LABS: INR 1.1 (0.9-1.1); Prothrombin Time 11.3 sec (9.3-11.0)
[2020-12-26 07:44] LABS: Albumin 2.6 g/dL (3.4-5.0); Alkaline Phosphatase 97 U/L (46-116); BUN 17 mg/dL (7-18); Bilirubin, Total 0.6 mg/dL (0.2-1.0); CREATININE 0.7 mg/dL (0.70-1.30); Calcium 8.3 mg/dL (8.5-10.1); Glucose 108 mg/dL (74-106); PHOSPHORUS 3.8 mg/dL (2.6-4.7); Total Protein 6.7 g/dL (6.4-8.2)
[2020-12-26 07:45] LABS: ALT 115 U/L (16-63); AST 42 U/L (15-37); Anion Gap 7.1 mmol/L (3-11); Bilirubin, Direct 0.2 mg/dL (0.0-0.2); C-Reactive Protein 1.69 mg/dL (0.0-0.3); CO2 27.9 mmol/L (21.0-32.0); Chloride 104 mmol/L (98-107); Magnesium 2.2 mg/dL (1.8-2.4); Potassium 4.3 mmol/L (3.5-5.1); Sodium 139 mmol/L (136-145)
[2020-12-26] MEDS: Ascorbic Acid 500 MG TAB 1000 MG PO ×2 (07:45→20:13)
[2020-12-26] MEDS: Furosemide 20 MG TAB PO ×2 (07:45→16:25)
[2020-12-26] MEDS: Famotidine 20 MG TAB PO ×2 (07:45→20:14)
[2020-12-26] MEDS: Cholecalciferol (Vitamin D3) 1,000 UNIT TAB 2000 UNITS PO (07:45)
[2020-12-26] MEDS: Zinc Sulfate 220 MG TAB PO (07:45)
[2020-12-26] MEDS: Polyethylene Glycol 3350 17 GM PACKET PO ×2 (07:46→20:15)
[2020-12-26] MEDS: Normal Saline Flush 10 ML SYR IVP ×3 (07:46→20:37)
[2020-12-26] MEDS: Enoxaparin 40 MG/0.4 ML SYR SC ×2 (07:46→20:14)
[2020-12-26] MEDS: guaiFENesin 600 MG TABCR PO ×2 (07:46→20:15)
[2020-12-26] MEDS: Docusate Sodium 100 MG CAP PO ×3 (07:46→20:14)
[2020-12-26] MEDS: Senna TAB 1 TAB PO ×2 (07:46→20:15)
[2020-12-26] MEDS: Dexamethasone 10 MG/ML VIAL 6 MG IVP (07:46)
[2020-12-26] MEDS: Budesonide/Formoterol 160/4.5 6 GM 60 PUFF INH IH ×2 (07:48→20:14)
[2020-12-26 07:51] LABS: Absolute Eosinophil Count 0.39 10^3/uL (0.0-0.7); Absolute Monocyte Count 0.93 10^3/uL (0.1-0.8); Absolute Neutrophil Count 4.91 10^3/uL (1.2-6.7); Bands % 2; Diff Comment Manual Differential; Metamyelocytes % 1; Myelocytes % 1; RBC Morphology Normal
[2020-12-26 08:14] LABS: Ferritin 216 ng/mL (26-388)
[2020-12-26 08:17] LABS: D-Dimer 948 ng/mlFEU (<500)
--- NOTE | 2020-12-26 16:13 | PGE_ITS ---
Date of Service Date of service: 12/26/20 Time of Service: 16:15 Assessment and Plan Assessment and plan (1) COVID-19: Status: Acute Assessment and plan: Covid-19 PNA Unvaccinated. CPAP, prone / side positioning if unable to prone. Breaks on High flow NC Pulmonary consulted. Dexamethasone 6mg IV daily. Remdesivir 200mg IV administered initially, then 100mg IV QHS Baricitinib 4 mg po daily D dimer and CrP trending downward (2) Respiratory failure: Status: Acute Assessment and plan: Supplemental O2 as above Qualifiers: Chronicity: acute Respiratory failure complication: hypoxia Qualified Code(s): J96.01 - Acute respiratory failure with hypoxia (3) Asthma: Status: Chronic Assessment and plan: Pt endorsed using Symbicort daily with albuterol rescue use prn. Continue. Qualifiers: Asthma severity: mild Asthma persistence: intermittent Asthma complication type: with acute exacerbation Qualified Code(s): J45.21 - Mild intermittent asthma with (acute) exacerbation (4) Morbid obesity: Status: Chronic Assessment and plan: Risk factor that prognosticates a poor outcome. (5) Sleep apnea: Status: Chronic Assessment and plan: Uses CPAP at home; continuing here as part of COVID- 19 treatment. Qualifiers: Sleep apnea type: obstructive Qualified Code(s): G47.33 - Obstructive sleep apnea (adult) (pediatric) Subjective Subjective Patient reports: feels better, tolerating a regular diet and afebrile; denies nausea, vomiting and shortness of breath Interval history since last seen: Asks when he will likely get to discharge. Exam Narrative Exam Narrative: Obese male sitting in chair. Const General: cooperative and no acute distress Nutritional Appearance: obese Orientation: alert and oriented x3 HENMT Head: atraumatic Ears: hearing grossly normal bilaterally Eyes General: appearance normal, both eyes and all related structures Sclera: sclerae normal Chest Chest: no tenderness Resp Effort & Inspection: normal respiratory effort Auscultation: diminished lung sounds Cardio Rate: regular rate Rhythm: regular rhythm Heart Sounds: S1 normal and S2 normal GI Inspection: obesity Palpation: soft and nontender Neuro General: moves all extremities Cognition: normal cognition Speech: speech normal Extrem General: no pedal edema and no calf tenderness Objective Last Vital Signs Temp 36.2 C L 12/26/20 12:08 Pulse 58 L 12/26/20 12:08 Resp 18 12/26/20 12:08 BP 116/58 L 12/26/20 12:08 Pulse Ox 96 12/26/20 12:08 Laboratory Results - last 24 hr 12/26/20 12/26/20 12/26/20 07:00 07:00 07:00 WBC 7.79 RBC 4.77 Hgb 12.6 L Hct 39.7 L MCV 83.2 MCH 26.4 L MCHC 31.7 L RDW 13.7 Plt Count 415 H MPV 10.3 Immature Gran % See Differential Neutrophils % 61.0 Band Neutrophils % 2 Lymphocytes % 18.0 Monocytes % 12.0 Eosinophils % 5.0 Basophils % 0.0 Metamyelocytes % 1 Myelocytes % 1 Nucleated RBC % 0 Absolute Neutrophils 4.91 Absolute Lymphocytes 1.40 Absolute Monocytes 0.93 H Absolute Eosinophils 0.39 Absolute Basophils 0.00 RBC Morphology Normal PT 11.3 H INR 1.1 D-Dimer 948 H Sodium 139 Potassium 4.3 Chloride 104 Carbon Dioxide 27.9 Anion Gap 7.1 BUN 17 Creatinine 0.7 Estimated GFR/1.73 m2 >= 60.00 Glucose 108 H Calcium 8.3 L Phosphorus 3.8 Magnesium 2.2 Ferritin 216 Total Bilirubin 0.6 Conjugated Bilirubin 0.2 AST 42 H ALT 115 H Alkaline Phosphatase 97 C-Reactive Protein 1.69 H Total Protein 6.7 Albumin 2.6 L
--- NOTE | 2020-12-26 17:05 | PDOC.CMPRO ---
- If Service Date Differs Date of service: 12/26/20 Time of Service: 17:05 Care Management Progress Note S/O: CM was able to talk to Nicholas over the phone today, as he is now on a nasal canula, 5L O2. He stated that he has been proning, and is feeling much better than when he arrived. He confirmed that he does have [place]. CM will inform access in order for them to add this to his chart. He is looking forward to returning home. CM will continue to follow. A: Nicholas is a 50 year old male admitted to [facility] on 12/18/20 with Covid 19 Pneumonia. P: Anticipate Nicholas will return home once he is medically cleared. Unclear at this time if he will require home O2. His family will drive him home via private vehicle. He will follow up with his PCP and discharge plan of care. CM will continue to follow.
[2020-12-26] MEDS: Albuterol HFA 8 GM 60 PUFF INH IH (17:20)
[2020-12-26] MEDS: Acetaminophen 325 MG TAB PO (20:13)
[2020-12-26] MEDS: Atorvastatin 40 MG TAB PO (20:13)
[2020-12-27 00:35] VITALS: BP 138/58; PULSE 63; RESP 16; TEMP 36.8; O2SAT 90
[2020-12-27 03:19] VITALS: BP 135/60; PULSE 78; RESP 16; TEMP 36.4; O2SAT 95
[2020-12-27 07:22] LABS: C-Reactive Protein 0.82 mg/dL (0.0-0.3)
[2020-12-27 07:40] LABS: D-Dimer 814 ng/mlFEU (<500)
[2020-12-27 08:03] VITALS: PULSE 66
[2020-12-27 08:32] VITALS: BP 118/93; PULSE 62; RESP 14; TEMP 35.8; O2SAT 93
[2020-12-27] MEDS: Ascorbic Acid 500 MG TAB 1000 MG PO (08:34)
[2020-12-27] MEDS: Budesonide/Formoterol 160/4.5 6 GM 60 PUFF INH IH (08:34)
[2020-12-27] MEDS: Cholecalciferol (Vitamin D3) 1,000 UNIT TAB 2000 UNITS PO (08:35)
[2020-12-27] MEDS: Enoxaparin 40 MG/0.4 ML SYR SC (08:37)
[2020-12-27] MEDS: Famotidine 20 MG TAB PO (08:37)
[2020-12-27] MEDS: Dexamethasone 10 MG/ML VIAL 6 MG IVP (08:37)
[2020-12-27] MEDS: Furosemide 20 MG TAB PO (08:37)
[2020-12-27] MEDS: Docusate Sodium 100 MG CAP PO ×2 (08:37→12:40)
[2020-12-27] MEDS: Senna TAB 1 TAB PO (08:38)
[2020-12-27] MEDS: guaiFENesin 600 MG TABCR PO (08:38)
[2020-12-27] MEDS: Metoprolol CR 50 MG TABCR PO (08:38)
[2020-12-27] MEDS: Polyethylene Glycol 3350 17 GM PACKET PO (08:38)
[2020-12-27] MEDS: Zinc Sulfate 220 MG TAB PO (08:39)
[2020-12-27 10:07] VITALS: PULSE 62; PULSE 68; PULSE 92; RESP 15; RESP 20; O2SAT 89; O2SAT 90
--- NOTE | 2020-12-27 11:45 | DSE_ITS ---
Date of service: 12/27/20 Time of Service: 11:45 DS: Diagnosis Discharge Diagnosis (1) COVID-19: Status: Acute (2) Respiratory failure: Status: Acute (3) Asthma: Status: Chronic (4) Morbid obesity: Status: Chronic (5) Sleep apnea: Status: Chronic Discharge Plan Disposition Patient Disposition: HOME Condition: Improving Discharge Details Reason For Visit: Covid-19 Pneumonia Admit Date/Time: 12/18/20 18:21 Admit Provider: Usman Major Attending Provider: Usman Major Primary Care Provider: Kay Lemos [facility] Course Hospital Course: This is a 50-year-old male, former smoker, a past history of asthma, not vaccinated for Covid with a known exposure in the last 1-2-week (to a farm employee) who presented to the ED for what he described as 7-8 days of body aches, cough, shortness of breath, dull headache, generalized weakness that has been worsening. He endorsed CP with coughing. No noted fever. Patient reports that his cough is primarily dry but is occasionally productive with a clear sputum. He does use Symbicort daily for his asthma and uses his rescue inhaler as needed, and he reported using it regularly over the past few days. His brother also presented to the ED and tested positive for COVID-19. He was admitted to the ICU and initiated on dexamethasone 6mg IV daily, Remdesivir, and Baricitinib. He was placed on CPAP with proning, breaks from CPAP on high-flow nasal cannula. His inflammatory markers were monitored daily with the d-dimer increasing then trending downward. The CRP was close to normal at time of d/c. His respiratory status steadily improved and will be discharged on 3L supplemental O2; primarily needed with activity. He will discharge with a prednisone taper as well. He does have sleep apnea and uses CPAP at home; this was dxd 7-8 years ago and he will need a repeat/follow up sleep study. He was encouraged to receive a COVID vaccine in appx 1 month and to f/u with his PCP in 1-2 weeks. Home Meds and New Rx's Prescriptions: New polyethylene glycol 3350 17 gram Powder In Packet 17 g PO BID Qty: 0 RF: 0 cholecalciferol (vitamin D3) 25 mcg (1,000 unit) Tablet 2,000 units PO DAILY Qty: 0 RF: 0 budesonide-formoterol [Symbicort] 160-4.5 mcg/actuation Hfa Aerosol Inhaler 2 puff inhalation BID Qty: 0 RF: 0 Preparation H(pe,cb) 0.25-88.44 % Suppository 1 supp WI BID PRN PRNQty: 0 RF: 0 furosemide 20 mg Tablet 20 mg PO BID@0830,1600 Qty: 14 RF: 0 prednisone 10 mg tablet See Rx Instructions .ROUTE .COMPLEX Qty: 20 RF: 0 Continued albuterol sulfate 2.5 mg /3 mL (0.083 %) solution for nebulization 2.5 mg inhalation TID PRNRF: 0 metoprolol succinate 50 mg tablet extended release 24 hr 50 mg PO DAILY RF: 0 omeprazole 40 mg capsule,delayed release(DR/EC) 40 mg PO DAILY@0730 RF: 0 meloxicam 7.5 mg tablet 7.5 mg PO BID PRNRF: 0 montelukast 10 mg tablet 10 mg PO QPM RF: 0 albuterol sulfate [ProAir HFA] 90 mcg/actuation HFA aerosol inhaler 1 - 2 puff INHALATION Q4H PRNRF: 0 Discharge Instructions Activity:: Activity as Tolerated Equipment/Supplies:: Oxygen (L/min Below) Diet:: Heart Healthy diet encouraged Discharge Orders Discharge Orders: Discharge Order (Routine); Ordered 12/27/20 Ordered By: Usman Major DS: Summary Time Spent with Patient providing and/or coordinating discharge services: Greater than 30 minutes Status at Discharge Functional status at discharge: independent ambulation Overall status at discharge: patient is progressing back to baseline Mental Status: mental status grossly normal Speech and Movement: speech and movement normal Mood: congruent mood Affect: normal affect Exam Narrative Exam Narrative: Const General: cooperative and no acute distress Nutritional Appearance: obese Orientation: alert and oriented x3 HENMT Head: atraumatic Ears: hearing grossly normal bilaterally Eyes General: appearance normal, both eyes and all related structures Sclera: sclerae normal Chest Chest: no tenderness Resp Effort & Inspection: normal respiratory effort Auscultation: diminished lung sounds Cardio Rate: regular rate Rhythm: regular rhythm Heart Sounds: S1 normal and S2 normal GI Inspection: obesity Palpation: soft and nontender Neuro General: moves all extremities Cognition: normal cognition Speech: speech normal Extrem General: no pedal edema and no calf tenderness Psych Mental Status: mental status grossly normal Speech and Movement: speech and movement normal Mood: congruent mood Affect: normal affect DS: Data Vitals/I&O Vitals and I&O: Vital Signs Temperature 35.8 C L 12/27/20 08:32 Temperature Source Tympanic 12/27/20 08:32 Pulse 62 12/27/20 08:32 Pulse Rhythm Regular 12/27/20 09:14 Pulse 89 12/24/20 22:30 Respiratory Rate 14 12/27/20 08:32 Respiratory Effort 12/27/20 09:14 Respiratory Depth Normal 12/27/20 09:14 Respiratory Pattern Normal 12/27/20 09:14 Blood Pressure 118/93 H 12/27/20 08:32 Blood Pressure Mean 74 12/25/20 10:26 Blood Pressure Position Sitting 12/25/20 10:00 Pulse Oximetry 93 12/27/20 08:32 Oxygen Delivery Method Nasal Cannula 12/27/20 08:32 Oxygen Flow Rate 3 12/27/20 08:32 Fraction of Inspired Oxygen (FIO2) 40 12/27/20 10:05 Pain Level 0 12/27/20 03:19 Intake & Output 12/26/20 12/26/20 12/27/20 11:59 23:59 11:59 Intake Total 500 / 1150 650 / 1150 Balance 500 / 1150 650 / 1150 Intake: IV Oral 500 / 1140 640 / 1140 Other: Urine Color Pale Urine Appearance Clear Clear Clear Urine Odor Normal Comment Patient is independent to the bathroom as needed. Patient is to the bathroom independently as needed. Voids independently. Voiding Methods Toilet Toilet Data Completed and Pending Labs on day of discharge: Labs from last 24 hours 12/27/20 12/27/20 06:15 06:15 D-Dimer 814 H C-Reactive Protein 0.82 H PFSH Medical History Asthma Sleep apnea Social History Smoking/Tobacco Use Status: Never Smoking risk assessment performed?: Yes Alcohol Intake: never Substance use type: does not use Do you feel safe at home: Yes Do you feel safe in your relationship?: Yes
[2020-12-27 13:12] VITALS: PULSE 71
--- NOTE | 2020-12-27 17:14 | PDOC.CMDIS ---
- If Service Date Differs Date of service: 12/27/20 Time of Service: 17:14 LACE Index Scoring Tool - Questions: Length of Stay (in days): 7 - 13 Acuity (Admit via E.D.?): Yes E.D. Visits: 1 - Answers: Total Score: 9 Risk of Readmission: Low Risk Care Management Discharge Reason for Hospitalization: Covid 19 Pneumonia Discharge Plan: Nicholas returned home today with new orders for home Oxygen, coordinated by RT through [facility]. He declined home health services. He will follow up with his PCP and discharge plan of care and his daughter will drive him home. He is happy to be going home. Patient/Family Education Needs: Review discharge instructions regarding activity levels and oxygen, discussion of self care needs including ask me three. Services Needed at Discharge: DME Agency ([facility], oxygen)
== END 2020-12-27 14:12 | disposition home or self-care (01) | DRG 177 ==
LOC: ER 18:51 → ICU 20:10 → MS 12-25 14:03
PROVIDERS: Internal Medicine; Physician Assistant; Admitting Provider Family Medicine; Emergency Provider Physician Assistant; PCP Internal Medicine; Visit Provider Family Medicine
DX: U07.1 COVID-19 (principal); J12.82 Pneumonia due to coronavirus disease 2019; J96.01 Acute respiratory failure with hypoxia; Z68.41 Body mass index [BMI] 40.0-44.9, adult; J45.21 Mild intermittent asthma with (acute) exacerbation; E66.01 Morbid (severe) obesity due to excess calories; Z87.891 Personal history of nicotine dependence; G47.33 Obstructive sleep apnea (adult) (pediatric); K64.9 Unspecified hemorrhoids; R74.01 Elevation of levels of liver transaminase levels
CPT/HCPCS: 36410; 36415; 71275; 80048; 80053; 80076; 84145; 86704; 86706; 86803; 86850; 86900; 86901; 87040; 87340; 87389; 87449; 87635; 93005; 94618; 94640; 96361; 96374; 99291; J1650; 82728; 83605; 83615; 83735; 83880; 84100; 84484; 85025; 85379; 85610; 86140; 93010; 93970; 94660; 99232; 99233; 99239; J0696; J1100; J2930; J3490; J7613; J7620